=== PATIENT | female | born 1990 | race Caucasian/White ===

== ENCOUNTER 2022-10-17 10:29 | Emergency (ER) | payer OTHER, MEDICAID, SELFPAY ==
[2022-10-17 11:12] VITALS: BP 122/82; PULSE 80; RESP 18; TEMP 36.7; O2SAT 100
--- NOTE | 2022-10-17 11:35 | ED.URI ---
HPI - URI/Sore Throat General Chief Complaint: Upper Respiratory Infection Stated Complaint: sorethroat,cough Time Seen by Provider: 10/17/22 11:36 History of Present Illness HPI Narrative: 32-year-old female presented for complaint of sinus congestion, sore throat, fatigue and cough over the last few days. She endorses episode of nausea and vomiting and endorses bilateral ear pain. She denies fever, but states she never gets afebrile. She denies shortness of breath, wheezing or abdominal pain. Taking [id number] medication without significant relief. She endorses her son tested positive for influenza last week. Related Data Allergies Allergy/AdvReac Type Severity Reaction Status Date / Time ceftriaxone [From Rocephin] Allergy Hives Verified 10/17/22 11:30 Review of Systems Review of Systems: Per HPI Exam Narrative: GENERAL: Ill-appearing, no acute distress. EYES: conjunctivae clear ENT: Mucous membranes moist. TMs pearly alaniz with normal light reflex bilaterally; no tragal tenderness. Oropharynx erythematous without lesions. No drooling, no hoarseness, no trismus, uvula midline. No tripod positioning, hot potato voice, or soft palate swelling. NECK: Supple. No lymphadenopathy CHEST: Clear to auscultation, breath sounds equal. No respiratory distress, speaks in full sentences. HEART: Regular rate and rhythm. No murmur heard. SKIN: Warm, dry, no rash. NEURO: Alert and oriented x3. Course Course Emergency Course: Patient is aware of diagnosis, understands and agrees to treatment plan. Anticipatory guidance given. Patient agrees to follow-up as directed and is aware of reasons to seek care at the emergency department. Portions of this record may have been created with voice recognition software Level of Care: Express Care Visit Vital Signs Vital signs: Vital Signs Temperature 98.1 F 10/17/22 11:12 Pulse Rate 80 10/17/22 11:12 Respiratory Rate 18 10/17/22 11:12 Blood Pressure 122/82 10/17/22 11:12 Pulse Oximetry 100 10/17/22 11:12 Oxygen Delivery Room Air 10/17/22 11:12 Temperature 98.1 F 10/17/22 11:12 Pulse Rate 80 10/17/22 11:12 Respiratory Rate 18 10/17/22 11:12 Blood Pressure 122/82 10/17/22 11:12 Pulse Oximetry 100 10/17/22 11:12 Oxygen Delivery Room Air 10/17/22 11:12 MDM - URI/Sore Throat MDM Narrative Medical decision making narrative: Due to lack of resources, unable to test for influenza or rapid strep at this time. COVID result reviewed with patient. Will treat for strep based on PE. Patient verbalizes understanding. Advised supportive measures and signs and symptoms to go to the ER. Patient is appropriate for outpatient treatment and follow-up. Differential Diagnosis Differential diagnosis: Likely upper respiratory infection, viral infection and pharyngitis Lab Data Labs: Lab Results 10/17/22 Range/Units 11:30 POC SARS CoV-2 Ag Negative (Negative) Discharge Plan Discharge Clinical Impression: Pharyngitis Qualifiers: Pharyngitis/tonsillitis etiology: unspecified etiology Qualified Code(s): J02.9 - Acute pharyngitis, unspecified Patient Disposition: Home, Self-Care Condition: Stable Instructions: Antibiotic Form, Strep Throat (ED) Additional Instructions: Covid negative - Take the antibiotic as directed. Fever and sore throat typically resolve within one to three days. Most patients can return to work after 24 hours of antibiotic therapy, provided you are fever free and otherwise well. -Eat and drink things that are easy to swallow, like soft foods, cool liquids, tea with honey, or popsicles . -Salt water gargles and/or may use topical anesthetic ( Chloraseptic spray) or lozenges to relieve dryness or throat pain -Alternate Tylenol and ibuprofen as needed for pain and fever as directed. -Frequent hand washing or hand assistant scientist is one of the best ways to prevent spread of infection. Throw away
== END 2022-10-17 12:05 | disposition home or self-care (01) ==
PROVIDERS: Emergency Provider Nurse Practitioner Family
DX: J02.9 Acute pharyngitis, unspecified (principal); Z20.822 Contact with and (suspected) exposure to COVID-19
CPT/HCPCS: 87426; 99203; C9803; G0463

== ENCOUNTER 2025-02-11 14:16 | Emergency (ER) | payer OTHER, SELFPAY ==
--- NOTE | ~2025-02-11 | US_ITS ---
Limited ABDOMINAL ULTRASOUND (Doppler ultrasound interrogation techniques used as needed for this exa m.) Ordering provider: Satish Matias MD History: . RUQ ab pain . Comparison: None. FINDINGS: PANCREAS: Normal echotexture and size of the visualized portion. PORTAL VEIN: Hepatopedal flow demonstrated. LIVER: Normal size and echotexture. No focal hepatic lesions or perihepatic fluid collections are otf ntified. BILIARY DUCTS: No intra or extrahepatic biliary dilation. Common bile duct measures 3.1 mm in diamete r which is normal for patient's age. GALLBLADDER: Normal. No stones, sludge, gallbladder wall thickening or pericholecystic fluid. Wall th ickness is 2.6 mm. Negative sonographic Burrell's sign. IVC: Patent. FREE FLUID: None visualized within the upper abdomen. IMPRESSION: normal limited abdominal ultrasound. Reviewed, dictated and finalized at location A.
--- OUTSIDE RECORDS SUMMARY | 2025-02-11 14:19 | XMS_ITS | Data Portability ---
Author Organization [employer] , [facility] Address [address] [place] [address] Assessment No assessment recorded. Plan of Treatment Reminders Order Date Submit Date Provider Last Modified By Organization Details Last Modified Time Details Appointments None recorded. Lab unlisted lab - pcos evaluation (high index suspicion) ([facility]) 2022 023 [facility], [address] [place], [address], 3 10:40:25 testosteron e, free + total, serum 2022 023 [facility], [address] [place], [address], 3 16:47:36 lipid panel, serum 2022 023 [facility], [address] [place], [address], 3 16:47:34 hemoglobin A1c, QN, blood 2022 023 [facility], [address] [place], [address], 3 09:58:35 insulin, serum 2022 023 [facility], [address] [place], [address], 3 16:47:35 bacterial vaginosis + vaginitis panel, vaginal 2022 023 [email or web address] [facility], [address] [place], [address], 3 11:22:15 urinalysis, dipstick 2022 023 [email or web address] [facility], [facility] [place], [address], 3 11:17:43 culture, urine 2022 023 [email or web address] [facility], [address] [facility], [place], [address], 3 11:23:56 CBC w/ auto diff 2022 023 [email or web address] [facility], [address] [place], [address], 3 11:23:06 Referral None recorded. Procedures None recorded. Surgeries None recorded. Imaging US, transvagina l 2022 023 ASBINO [facility], [address] [place] [address], [address], 3 06:28:16 US, transvagina l 2021 022 fartun [facility], [address] [place] [address], [address], 3 19:10:14 MAMMO, diagnostic, digital, bilateral - Also ultrasound, if indicated 2021 022 [email or web address] [facility], [address] [facility], [place], [address], 3 12:43:14 US, obstetric 2021 022 [email or web address] 173 [facility], [address] [place], [address], 14:27:43 Medication Orders None recorded. Patient TargetsNo targets recorded. Patient Instructions Encounter Date Encounter Id Patient Instructions Last Modified By Organization Details Last Modified Time 01/02/2023 [id number] Charge Nurse Med/Surg St E. Reports relationship problems. Reports stress and weight loss 10# in < one month. Also heavy LMP and will proceed with CBC today. Denies any new products or antibiotic use. Reports she used Monistat and everything seems better except for discharge. Denies any known exposures. Desires sureswab culture today. UA negative for nitrite and culture sent. Hygiene and products discussed. Pelvic rest and STI prevention with condoms. Call for any problems. [email or web address] Not available 01/02/2023 11:28:57 Reason for Referral None Reported. Results Created Date Observation Date Name Description Value Unit Range Abnormal Flag Note LastModifiedBy Organization Detail LastModifiedTime 01/03/2001/03/2023 CBC (INCL UDES DIFF/ PLT) WBC 5.9 thous and/u L 4.0 - 9.8 normal Not [place], [address], 01/03/2023 11:31:22 01/03/20 23 01/03/2023 CBC (INCL UDES DIFF/ PLT) RBC 4.8 kesha on/uL 3.9 - 4.9 normal Not Available [place], [address], 01/03/2023 11:31:22 01/03/20 23 01/03/2023 CBC (INCL UDES DIFF/ PLT) hemoglobin 13.5 g/dL 11.8 - 14.8 normal Not Available [place], [address], 01/03/2023 11:31:22 01/03/20 23 01/03/2023 CBC (INCL UDES DIFF/ PLT) hematocrit 42.2 % 35.5 - 44.0 normal Not Available [place], [address], 01/03/2023 11:31:22 01/03/20 23 01/03/2023 CBC (INCL UDES DIFF/ PLT) MCV 87.7 fL 82.0 - 99.0 normal Not Available [address], [address], 01/03/2023 11:31:22 01/03/20 23 01/03/2023 CBC (INCL UDES DIFF/ PLT) MCH 28.1 pg 27.2 - 32.6 normal Not Available [address], [address], 01/03/2023 11:31:22 01/03/20 23 01/03/2023 CBC (INCL UDES DIFF/ PLT) MCHC 32.0 g/dL 31.5 - 35.5 normal Not Available [address], [address], 01/03/2023 11:31:22 01/03/20 23 01/03/2023 CBC (INCL UDES DIFF/ PLT) RDW-CV 12.4 % 11.5 - 14.5 normal Not Available [address], [address], 01/03/2023 11:31:22 01/03/20 23 01/03/2023 CBC (INCL UDES DIFF/ PLT) platelet 283 thous and/u L 140 - 350 normal Not Available [address], [address], 01/03/2023 11:31:22 01/03/20 23 01/03/2023 CBC (INCL UDES DIFF/ PLT) MPV 10.5 fL 9.3 - 12.4 normal Not Available [address], [address], 01/03/2023 11:31:22 01/03/20 23 01/03/2023 CBC (INCL UDES DIFF/ PLT) absolute neutrophil 2.99 thous and/u L 1.90 - 7.00 normal Not Available [address], [address], 01/03/2023 11:31:22 01/03/20 23 01/03/2023 CBC (INCL UDES DIFF/ PLT) absolute lymphocyte 2.40 thous and/u L 0.70 - 4.50 normal Not Available [address], [address], 01/03/2023 11:31:22 01/03/20 23 01/03/2023 CBC (INCL UDES DIFF/ PLT) absolute monocyte 0.39 thous and/u L 0.10 - 1.30 normal Not Available [address], [address], 01/03/2023 11:31:22 01/03/20 23 01/03/2023 CBC (INCL UDES DIFF/ PLT) absolute eosinophil 0.08 thous and/u L <0.70 normal Not Available [address], [address], 01/03/2023 11:31:22 01/03/20 23 01/03/2023 CBC (INCL UDES DIFF/ PLT) absolute basophil 0.02 thous and/u L <0.20 normal Not Available [address], [address], 01/03/2023 11:31:22 01/03/20 23 01/03/2023 CBC (INCL UDES DIFF/ PLT) absolute immature granulocyte 0.00 thous and/u L <0.03 normal Not Available [address], [address], 01/03/2023 11:31:22 01/03/20 23 01/03/2023 CULTU RE, URINE , ROUTI NE culture, urine, routine SEE NOTE abnormal CULTU RE, URINE , ROUTI NE Micro Numbe r: [id number] Test Statu s: Final Speci men Sourc e: Urine Speci men Quali ty: Adequ ate Resul t: Great er than 100,0 00 CFU/m L of Group B Strep tococ cus isola alexander Beta- hemol ytic strep tococ ci are predi ctabl y susce ptibl e to Penic illin and other beta- lacta ms. Susce ptibi lity testi ng not routi robert perfo rmed. Pleas e conta ct the labor atory withi n 3 days if susce ptibi lity testi ng is marla ed. Comme nt: Eryth romyc in and clind amyci n are not recom krys d for treat ment of urina ry tract infec tions , but clind amyci n may be usefu l for treat ment of recto vagin al colon izati on or infec tion. Any amoun t of group B Strep tococ cus in urine speci mens obtai moshe from pregn ant femal es is a marke r of genit al tract colon izati on. If this patie nt is pregn ant, pleas e refer to ACOG guide lines for appro priat e scree tru and manag ement of pregn ant women . COMME NT: Addit ional non-p redom inati ng organ ism(s ) isola alexander. These organ isms, commo nly found on exter nal and inter nal genit rodrigo, are consi dered colon izers . No furth er testi ng perfo rmed. Not Available [facility] [facility] [address] [place], [address], 01/03/2023 16:26:25 01/03/20 23 01/05/2023 VAGIN ITIS PLUS STD PANEL bacterial vaginosis BV POS negati ve abnormal Not Available [facility] [address] [place], [address], 01/06/2023 10:08:43 01/03/20 23 01/05/2023 VAGIN ITIS PLUS STD PANEL kan species C. spp POS negati ve abnormal Not Available [facility] [address] [place], [address], 01/06/2023 10:08:43 03/10/01/05/2023 VAGIN ITIS PLUS STD PANEL kan glabrata C. gla neg negati ve normal Not Available [address], [address], 01/06/2023 10:08:43 01/03/20 23 01/05/2023 VAGIN ITIS PLUS STD PANEL trichomonas vaginalis CV/TV TRICH neg negati ve normal Not Available [address], [address], 01/06/2023 10:08:43 01/03/20 23 01/05/2023 VAGIN ITIS PLUS STD PANEL chlamydia trachomatis CT neg negati ve normal This repor t is inten ded for us in clini lory monit oring and manag ement of patie nts. It is not inten ded for use in medic al- gal appli catio n. Not Available [address], [address], 01/06/2023 10:08:43 01/03/20 23 01/05/2023 VAGIN ITIS PLUS STD PANEL neisseria gonorrhoeae GC neg negati ve normal This repor t is inten ded for us in clini lory monit oring and manag ement of patie nts. It is not inten ded for use in medic al-le gal appli catio n. Not Available [address], [address], 01/06/2023 10:08:43 01/03/20 23 01/02/2023 urina lysis , dipst ick Leukocytes Small Not Available [facility] [place], [address], 01/02/2023 11:07:53 01/03/20 23 01/02/2023 urina lysis , dipst ick Nitrite negati ve Not Available [facility]_[address], [address], 01/02/2023 11:07:53 01/03/20 23 01/02/2023 urina lysis , dipst ick Urobilinogen .2 Not Available [facility] [address], [address], 01/02/2023 11:07:53 01/03/20 23 01/02/2023 urina lysis , dipst ick Protein Trace Not Available [address], [address], 01/02/2023 11:07:53 01/03/20 23 01/02/2023 urina lysis , dipst ick pH 7.0 Not Available [address], [address], 01/02/2023 11:07:53 01/03/20 23 01/02/2023 urina lysis , dipst ick Blood Negati ve Not Available [address], [address], 01/02/2023 11:07:53 01/03/20 23 01/02/2023 urina lysis , dipst ick Specific [place] 1.005 Not Available [facility] [address], [address], 01/02/2023 11:07:53 01/03/20 23 01/02/2023 urina lysis , dipst ick Ketone Small Not Available [address], [address], 01/02/2023 11:07:53 01/03/20 23 01/02/2023 urina lysis , dipst ick Bilirubin Negati ve Not Available [address], [address], 01/02/2023 11:07:53 01/03/20 23 01/02/2023 urina lysis , dipst ick Glucose Negati ve Not Available [address], [address], 01/02/2023 11:07:53 01/03/20 23 01/02/2023 urina lysis , dipst ick Appearance Clear Not Available [facility] [address], [address], 01/02/2023 11:07:53 01/03/20 23 01/02/2023 urina lysis , dipst ick Color Yellow Not Available [address], [address], 01/02/2023 11:07:53 07/24/20 23 07/25/2023 HEMOG LOBIN A1C hemoglobin A1C 5.4 % <5.7 normal The refer ence range for HbA1c is indic ated in the table below . Sugge sted Diagn osis =6.5% Consi stent with diabe neva 5.7 6.4% Consi stent with incre ased risk for diabe neva (pred iabet ic) <5.7% Consi stent with the absen ce of diabe neva Not Available [facility] [address] [place], [address], 07/25/2023 09:58:35 07/24/2007/25/2023 PCOS EVALU ATION (HIGH INDEX SUSPI CION) ([facility] ) DHEA-S 228.3 mcg/d L 25.9 - 460.2 normal Not Available [facility] [address] [place], [address], 07/25/2023 10:40:25 07/24/20 23 07/25/2023 PCOS EVALU ATION (HIGH INDEX SUSPI CION) ([facility] ) FSH 4.6 mIU/m L Refer ence Range s are for femal es aged 18 years - Adult Brittany l Menst ruati ng Femal e: Folli cular phase : 2.5-1 0.2 mIU/m L Mid-C ycle Peak: 3.4-3 3.4 mIU/m L Lutea l phase : 1.5-9 .1 mIU/m L Pregn ant: <0.3 mIU/m L Post- menop ausal : 23.0- 116.6 mIU/m L Not Available [place], [address], 07/25/2023 10:40:25 07/24/2007/25/2023 PCOS EVALU ATION (HIGH INDEX SUSPI CION) ([facility] ) LH 15.63 U/L Refer ence Range s are for femal es aged 18 years - Adult Brittany l Menst ruati ng Femal e: Folli cular phase : 1.9-1 2.5 mIU/m L Mid-C ycle Peak: 8.7-7 6.3 mIU/m L Lutea l phase : 0.5-1 6.9 mIU/m L Pregn ant: <0.1- 1.5 mIU/m L Post- menop ausal : 15.9- 54.0 mIU/m L Contr acept debby: 0.7-5 .6 mIU/m L Not Available [place], [address], 07/25/2023 10:40:25 07/24/2007/25/2023 PCOS EVALU ATION (HIGH INDEX SUSPI CION) ([facility] ) TSH 1.09 mIU/L 0.55 - 4.78 normal Refer ence Range Femal e aged 18-Ad ult: 0.55- 4.78 Pregn natty Refer ence Range s First Trime ster 0.26- 2.66 Secon d Trime ster 0.55- 2.73 Third Trime ster 0.43- 2.91 Not Available [place], [address], 07/25/2023 10:40:25 07/24/20 23 07/25/2023 PCOS EVALU ATION (HIGH INDEX SUSPI CION) ([facility] ) T4, free 1.13 NG/dL 0.89 - 1.76 normal Not Available [address], [address], 07/25/2023 10:40:25 07/24/20 23 07/29/2023 LIPID PANEL , STAND EDD cholesterol, total 256 mg/dL <200 high Not Available [address], [address], 07/29/2023 16:47:34 07/24/20 23 07/29/2023 LIPID PANEL , STAND EDD HDL cholesterol 59 mg/dL > or = 50 normal Not Available [address], [address], 07/29/2023 16:47:34 07/24/20 23 07/29/2023 LIPID PANEL , STAND EDD triglyceride s 137 mg/dL <150 normal Not Available [employer] [address], [address], 07/29/2023 16:47:34 07/24/20 23 07/29/2023 LIPID PANEL , STAND EDD LDL-choleste rol 170 mg/dL _(lory c) high Refer ence range : <100 Marla able range <100 mg/dL for prima ry preve ntion ; <70 mg/dL for patie nts with CHD or diabe tic patie nts with > or = 2 CHD risk facto rs. LDL-C is now calcu lated using the Guadalupe n-Hop kins calcu neto n, which is a valid ated novel metho d anai medina burk r accur acy than the Fried mirian equat ion in the estim ation of LDL-C . Guadalupe bean SS et al. DAMIAN. 2013; 310(2 9): 2061- 2068 (http ://ed ucati on.Radius App. com/f aq/FA Q164) Not Available [employer] [place] [address] [address], [place], [address], 07/29/2023 16:47:34 07/24/20 23 07/29/2023 LIPID PANEL , STAND EDD chol/HDLC ratio 4.3 (calc ) <5.0 normal Not Available [facility] [place] [address] [address], [place], [address], 07/29/2023 16:47:34 07/24/20 23 07/29/2023 LIPID PANEL , STAND EDD non HDL cholesterol 197 mg/dL _(lory c) <130 high For patie nts with diabe neva plus 1 major ASCVD risk facto r, treat ing to a non-H DL-C goal of <100 mg/dL (LDL- C of <70 mg/dL ) is consi dered a thera peuti c optio n. Not Available [facility] [place] [address] [address], [place], [address], 07/29/2023 16:47:34 07/24/2007/29/2023 INSUL IN insulin 10.9 uIU/m L normal Refer ence Range < or = 18.4 Risk: Optim al < or = 18.4 Moder ate NA High >18.4 Adult cardi ovasc ular event risk categ ory cut point s (opti mal, moder ate, high) are based on Insul in Refer ence Inter carlito studi es [facility]med at [facility] in 2021. Not Available [employer] [place] [address] [address], [place], [address], 07/29/2023 16:47:35 07/24/2007/29/2023 TESTO STERO NE, FREE (DIAL YSIS) AND TOTAL ,MS testosterone , total, MS 44 NG/dL 2-45 For addit ional infor johnathon kennedy e refer to https ://ed ati on.GTX Messaging. com/f aq/FA Q165 (This link is being provi ded for infor matio nal/e ducat ional purpo ses only. ) (Note ) This test was devel oped and its jerri tical perfo rmanc e narayan cteri stics have been deter mined by Olive Loomon. It has not been clear ed or appro bhakti by the FDA. This assay has been valid ated pursu ant to the CLIA regul ation s and is used for clini lory purpo ses. Not Available [facility] [address] [place], [address], 07/29/2023 16:47:36 07/24/20 23 07/29/2023 TESTO STERO NE, FREE (DIAL YSIS) AND TOTAL ,MS testosterone , free 4.3 pg/mL 0.1-6. 4 (Note ) This test was devel oped and its jerri tical perfo rmanc e narayan cteri stics have been deter mined by Olive Loomon. It has not been clear ed or appro bhakti by the FDA. This assay has been valid ated pursu ant to the CLIA regul ation s and is used for clini lory purpo ses. MDF med fusio n [address] [facility] [address] [facility] [address] [phone] Magan renner MD Not Available [facility] [address] [place], [address], 07/29/2023 16:47:36 10/09/20 22 US, obste tric No observ ation record ed. [email or web address] [facility] [address] [facility], [place], [address], 10/09/2022 11:45:08 10/11/20 22 10/09/2022 US, obste tric No observ ation record ed. [email or web address] [address] [facility], [place], [address], 10/14/2022 19:57:47 02/11/20 23 02/10/2023 MAMMO , diagn ostic , digit al, bilat eral No observ ation record ed. [email or web address] [place], [place] [address], [place], [address], 02/12/2023 12:24:49 02/11/20 23 02/10/2023 US, breas t, bilat eral, limit ed No observ ation record ed. [facility], [place], [address], 02/18/2023 08:44:41 02/11/20 23 02/10/2023 US, breas t, bilat eral, limit ed No observ ation record ed. [facility], [place], [address], 02/18/2023 08:44:58 07/21/20 23 07/20/2023 US, trans vagin al No observ ation record ed. [email or web address] Shanna [address], [place], [address], 07/21/2023 11:22:56 Result Notes None recorded. Problems Name Problem SNOMED Code Status Onset Date Resolution Date Notes Provider Name and Address Organization Details Recorded Time Insertio n of intraute rine contrace ptive device done 29256110695 9109 Completed 201303/16/2014 Encounte r for insertio n of intraute rine contrace ptive device; Location : None Severity : Moderate Progress : Stable Added By: Susan Arboleda Add to Current Problems : NO ProblemS tatus: Resolve Not Available [facility] 02:43:40 Family history of congenit al disease [id number] Completed 201809/23/2021 Family history of other congenit al malforma tions, deformat ions and chromoso mal abnormal ities; Severity : Moderate Progress : Stable Added By: Wendy Marie Add to Current Problems : YES ProblemS tatus: Current Audelia Ramirez null, [place] - [employer] 15:53:46 Gestatio n period, 8 weeks 17850843 Completed 201809/23/2021 8 weeks gestatio n of pregnanc y; Severity : Moderate Progress : Stable Added By: Laila Segura Add to Current Problems : YES ProblemS tatus: Current Audelia Ramirez null, [place] - [employer] 15:53:51 Uses intraute rine contrace ption [id number] Completed 201411/29/2014 Patient with intraute rine contrace ptive device (IUD); Location : None Severity : Moderate Progress : Stable Added By: Karina Orellana Add to Current Problems : YES ProblemS tatus: Resolve Not Available [facility] 02:43:40 Sampling of vagina for Papanico laou smear Completed 202009/23/2021 Encounte r for gynecolo gical examinat ion (general ) (routine ) without abnormal findings ; Severity : Moderate Progress : Stable Added By: Belinda Fernandez Add to Current Problems : YES ProblemS tatus: Current Audelia Ramirez null, [place] - [employer] 15:53:54 Contrace ptive usage NOS Completed 201408/07/2015 Initiati on of other contrace ptive measures ; Location : None Severity : Moderate Progress : Stable Added By: Wendy Clifford Add to Current Problems : YES ProblemS tatus: Resolve Not Available [facility] 02:43:49 Normal pregnanc y in multigra hans [id number] 4106 Completed 201810/08/2021 Encounte r for supervis ion of other normal pregnanc y, first mo r; Severity : Moderate Progress : Stable Added By: Clair Guevara Add to Current Problems : YES ProblemS tatus: Current Belinda Bowie null, [place] - [employer] 10:50:03 Threaten ed miscarri age 61432906 Completed 201809/23/2021 Threaten ed ; Location : None Severity : Moderate Progress : Stable Added By: Joan Diehl Add to Current Problems : NO ProblemS tatus: Resolve; Start Date : 11/08/19 14 Threa tened ; Severity : Moderate Progress : Stable Added By: Annette Cole Add to Current Problems : YES ProblemS tatus: Current Audelia Ramirez null, [facility] 1 15:53:57 Pregnanc y care of habitual aborter Completed 201312/16/2014 Habitual aborter, not currentl y ; Location : None Progress : Stable Added By: Marek Worthington V Add to Current Problems : NO ProblemS tatus: Resolve Not Available [facility] 2 19:21:15 Pelvic and perineal pain 891493194 Completed 201411/07/2015 Pelvic and perineal pain; Progress : Stable Added By: Siri Rueda Add to Current Problems : NO ProblemS tatus: Resolve Not Available [facility] 2 19:21:16 Breast lump 26058091 Completed 201509/23/2021 Breast mass; Location : None Severity : Moderate Progress : Stable Added By: Anastasiia Barrera Add to Current Problems : NO ProblemS tatus: Resolve; Start Date : 02/10/20 14 Unspe cified lump in breast; Severity : Moderate Progress : Stable Added By: Worthington, Marek V Add to Current Problems : YES ProblemS tatus: Current Breast mass; Location : None Severity : Moderate Progress : Stable Added By: Worthington, Marek V Add to Current Problems : NO ProblemS tatus: Current Audelia Ramirez null, [facility] 1 15:53:43 Missed miscarri age 30434282 Completed 201301/13/2014 Missed ; Progress : Stable Added By: Marissa Garza Add to Current Problems : NO ProblemS tatus: Resolve Not Available [facility] 2 19:21:16 Female genital organ symptoms 052985892 Completed 201411/07/2015 Pelvic pain; Location : None Progress : Stable Added By: Michael Griffiths Add to Current Problems : NO ProblemS tatus: Resolve; Start Date : 01/25/20 14 Pelvi c pain; Location : None Progress : Stable Added By: Siri Rueda Add to Current Problems : YES ProblemS tatus: Resolve Not Available [facility] 2 19:21:15 Dyspareu demetria 16333403 Completed 201311/29/2014 Dyspareu demetria; Location : None Progress : Stable Added By: Lauren Ag Add to Current Problems : NO ProblemS tatus: Resolve Not Available [facility] 2 19:21:15 IUCD status 266698524 Completed 201411/29/2014 Patient with intraute rine contrace ptive device (IUD); Location : None Progress : Stable Added By: Karina Orellana Add to Current Problems : YES ProblemS tatus: Resolve Not Available [facility] 2 19:21:14 Antenata l screenin g Active 2018 Encounte r for other specifie d antenata l screenin g; Progress : Stable Added By: Clair Guevara Add to Current Problems : YES ProblemS tatus: Current Salud Delacruz null, [place] - [facility] 2 12:43:12 Pre-surg alessia evaluati on Completed 201303/16/2014 IUD Prep; Location : None Progress : Stable Added By: Susan Arboleda Add to Current Problems : NO ProblemS tatus: Resolve Not Available [facility] 2 19:21:16 Screenin g for malignan t neoplasm of cervix Active 2020 Encounte r for screenin g for malignan t neoplasm of cervix; Progress : Stable Added By: Belinda Fernandez Add to Current Problems : YES ProblemS tatus: Current Salud Delacruz null[place] [facility] 2 12:43:12 Palpitat ions 15328109 Active 2021 Salud Delacruz null[place] [facility] 2 12:43:12 Anxiety 11033419 Active 2021 Salud Delacruz null[place] [facility] 2 12:43:12 Vitamin D deficien cy 13630921 Active 2021 Salud Delacruz null[place] [facility] 2 12:43:12 Gestatio n period, 10 weeks 40937550 Completed 201809/23/2021 10 weeks gestatio n of pregnanc y; Severity : Moderate Progress : Stable Added By: Clair Guevara Add to Current Problems : YES ProblemS tatus: Current Audelia juárez, [facility] IV 1 15:53:49 Notes:Initiation of other co ntraceptive measures (V25.02) ; OnsetDate: 11/29/2014; ResolvedDate: 08/07/2015; Progress: Stable Added By: Wendy Clifford Add to Current Problems: NO ProblemStatus: Resolve Encounter for insertion of intrauterine contraceptive device (V25.11) ; OnsetDate: 01/13/2014; ResolvedDate: 03/16/2014; Progress: Stable Added By: Susan Barnes Add to Current Problems: NO ProblemStatus: Resolve Problem Notes None recorded. Procedures Surgical History Date Name Laterality Status Provider Name and Address Organization Details Recorded Time 2 Date of Last Pap Smear completed Audelia Ramirez [facility] 01/02/2023 10:42:48 1 Most Recent Mammogram completed Sylvia Vinson [facility] 10/09/2022 11:52:28 Remove tonsils and adenoids completed Leona Daniel [facility] 09/18/2021 12:37:45 Imaging Results Imaging Date Name Status LastModified by Organization Details LastModified Time 10/09/2022 US, obstetric completed [id number] [facility] [address] [place], [address], 10/09/2022 11:45:08 10/09/2022 US, obstetric completed carolee Shanna [address], [place], [address], 10/14/2022 19:57:47 02/10/2023 MAMMO, diagnostic, digital, bilateral completed [email or web address] [place] [address], [place], [address], 02/12/2023 12:24:49 02/10/2023 US, breast, bilateral, limited completed [facility], [place], [address], 02/18/2023 08:44:41 02/10/2023 US, breast, bilateral, limited completed [facility], [place], [address], 02/18/2023 08:44:58 07/20/2023 US, transvaginal completed [facility] [address], [facility], [place], [address], 07/21/2023 11:22:56 Procedure Notes None recorded. Medical Equipment None Reported. Allergies Allergen ID Allergen Name Allergen Category Reaction Reaction Severity Criticality Documentation Date Start Date Code Code System Note Provider Name and Address Organization Details Recorded Time 456371 Rocephin medicatio n Not available Not available Not available 08/16/20212020 9449 RxNorm Sever ity: Moder ate; Not Available Not Available Not Available 181304 ciproflox acin medicatio n rash moderate Not available 09/08/20222018 2551 RxNorm Not Available Not Available Not Available 202285 ceftriaxo ne medicatio n hives rash moderate moderate Not available 09/08/20222018 2193 RxNorm Not Available Not Available Not Available 657632 varicella virus vaccine live medicatio n Not available Not available Not available 01/02/2023 15563 UNK Not Available Not Available Not Available Medications Name Sig Start Date Stop Date Status Note LastModified by Organization Details LastModified Time binaxnow covid-19 ag card home test kit 01/02 completed Not Available Not Available Not Available amoxicill in 500 mg capsule TAKE 1 CAPSULE BY MOUTH THREE TIMES DAILY FOR 7 DAYS 05/12 completed Not Available Not Available Not Available fluconazo le 150 mg tablet TAKE 1 TABLET BY MOUTH TODAY AND REPEAT IN 3 DAYS 05/12 completed Not Available Not Available Not Available ampicilli n 500 mg capsule TAKE 1 CAPSULE BY MOUTH EVERY 6 HOURS FOR 7 DAYS 05/12 completed Not Available Not Available Not Available hydrocodo ne 5 mg-acetam inophen 325 mg tablet TAKE 1 TO 2 TABLETS BY MOUTH EVERY 6 HOURS NEEDED FOR PAIN OR ACUTE PAIN OR MODERATE PAIN active Not Available Not Available No t Available phenazopy ridine 200 mg tablet 10/08 completed Not Available Not Available Not Available metronida zole 0.75 % (37.5 mg/5 gram) vaginal gel INSERT 1 APPLICAT ORFUL VAGINALL Y ONCE DAILY FOR 5 DAYS 05/12 completed Not Available Not Available Not Available ondansetr on HCl 4 mg tablet TAKE 1 TABLET BY MOUTH EVERY 8 HOURS NEEDED 01/02 completed Not Available Not Available Not Available metronida zole 500 mg tablet TAKE 1 TABLET BY MOUTH EVERY 12 HOURS FOR 7 DAYS 05/12 completed Not Available Not Available Not Available amoxicill in 500 mg tablet Take 1 tablet 3 times a day by oral route for 7 days. 05/12 completed Not Available Not Available Not Available Vitamin tablet Take 1 tablet(s ) by mouth daily 10/08 completed Multivit moss Tablet Allow Substitu tion: True Refill Denied: No Refill Note: No longer taking Refill DateOccu rred: 11/08/19 14 Not Available Not Available Not Available oxycodone -acetamin ophen 5 mg-325 mg tablet 03/20 completed Not Available Not Available Not Available famotidin e 20 mg tablet 10/08 completed Not Available Not Available Not Available dicyclomi ne 20 mg tablet 10/08 completed Not Available Not Available Not Available neomycin- polymyxin -dexameth 3.5 mg/mL-10, 000 unit/mL-0 .1% eye drops INSTILL ONE DROP INTO THE AFFECTED EYE FOUR TIMES DAILY X 7 DAYS. SHAKE LIQUID WELL BEFORE USE. 10/09 completed Not Available Not Available Not Available ondansetr on 4 mg disintegr ating tablet 10/08 completed Not Available Not Available Not Available dicyclomi ne 10 mg capsule Take 10 mg 4 times a day by oral route. 10/09 completed Not Available Not Available Not Available amoxicill in 875 mg-potass ium clavulana te 125 mg tablet 10/08 completed Not Available Not Available Not Available NuvaRing 0.12 mg-0.015 mg/24 hr vaginal Insert 1 vaginal ring in vagina for 21 days then remove the ring for 1 week. 11/29 completed NuvaRing 0.015mg/ 0.12mg Vaginal Ring RxNorm: [id number] Allow Substitu tion: True Refill Denied: No Not Available Not Available Not Available nitrofura ntoin monohydra te/macroc rystals 100 mg capsule 10/08 completed Not Available Not Available Not Available Fish Oil 12/18 completed Fish Oil RxNorm: 0 Allow Substitu tion: True Refill Denied: No Refill DateOccu rred: 12/17/19 19 Edited by: Belinda Garcia ) on 12/18/19 Stopped by: Belinda Garcia ) on 12/18/19 21 Not Available Not Available Not Available folic acid Take 1 tablet(s ) by mouth daily 03/16 completed Folic Acid 0.4mg Tablets RxNorm: [id number] Allow Substitu tion: True Refill Denied: No Refill Note: No longer taking Refill DateOccu rred: 11/08/19 14 Not Available Not Available Not Available Vitamin D 10/09 completed Not Available Not Available Not Available multivita min 05/12 completed Not Available Not Available Not Available Mirena Inserted 01/13/1411/14 completed Mirena 52mg Intraute rine System RxNorm: [id number] Allow Substitu tion: True Refill Denied: No Refill DateOccu rred: 03/16/20 14 Not Available Not Available Not Available cholecalc iferol (vitamin D3) 25 mcg (1,000 unit) tablet Take 1 {tbl} by oral route. 01/02 completed Not Available Not Available Not Available butalbita l-acetami nophen-ca ffeine 50 mg-300 mg-40 mg capsule TAKE 1 CAPSULE BY MOUTH EVERY 4 HOURS NEEDED FOR HEADACHE 01/02 completed Not Available Not Available Not Available Lo Loestrin Fe 1 mg-10 mcg (24)/10 mcg (2) tablet 1 tab PO daily 10/09 completed Lo Loestrin Fe Biphasic Tablet Allow Substitu tion: False Refill Denied: No For Problem: Initiati on of other contrace ptive measures Not Available Not Available Not Available Cedric Fe 11/14 (28) 1 mg-20 mcg (21)/75 mg (7) tablet 10/08 completed Not Available Not Available Not Available Vitals Date Recorded Body height Provider Name an d Address Organization Details Last Updated DateTime 10/09/2022 154.94 cm Dona Henry [facility] [employer] [facility] 10/09/2022 11:37:25 Date Recorded Body mass index (BMI) Body weight Body temperature Systolic blood pressure Diastolic blood pressure Provider Name and Address Organization Details Last Updated DateTime 2 25.5 kg/m2 10325.9 7 g 97.8 [degF] 114 mm[Hg] 80 mm[Hg] Sylvia Vinson [facility] [employer] IV 2 11:49:28 Date Recorded Body height Body mass index (BMI) Body weight Body temperature Systolic blood pressure Diastolic blood pressure Provider Name and Address Organization Details Last Updated DateTime 3 154.94 cm 24.9 kg/m2 70368.1 9 g 98.2 [degF] 112 mm[Hg] 64 mm[Hg] Audelia Ramirez [facility] [employer] [facility] IV 3 10:41:53 Date Recorded Body height Body mass index (BMI) Body weight Systolic blood pressure Diastolic blood pressure Provider Name and Address Organization Details Last Updated DateTime 05/12/2023 154.94 cm 25.7 kg/m2 67475.5 6 g 100 mm[Hg] 70 mm[Hg] Etelvina Rodgers [facility] [employer] [facility] IV 3 12:03:01 Date Recorded Body height Body mass index (BMI) Body weight Body temperature Systolic blood pressure Diastolic blood pressure Provider Name and Address Organization Details Last Updated DateTime 3 154.94 cm 26.3 kg/m2 33008.7 8 g 98.7 [degF] 120 mm[Hg] 72 mm[Hg] Vivian San [facility] 3 11:55:20 Date Recorded Body height Body mass index (BMI) Body weight Body temperature Systolic blood pressure Diastolic blood pressure Provider Name and Address Organization Details Last Updated DateTime 3 154.94 cm 26.8 kg/m2 92989.4 g 97.8 [degF] 122 mm[Hg] 74 mm[Hg] Vivian San [facility] 3 15:02:12 Social History Question Answer Notes LastModified by Organizat ion Details LastModified Time Tobacco Smoking Status Never Smoker Leona Daniel franck, [facility] 09/18/2021 12:37:05 What Is Your Level Of Alcohol Consumption? Occasional Information not available 09/18/2021 How Many Times Per Week Do You Consume Alcohol? 1-2 Times Per Week Information not available 09/18/2021 Are You Blind Or Do You Have Difficulty Seeing? No Information not available 09/18/2021 Are You Currently Employed? Yes Information not available 09/18/2021 Are You Deaf Or Do You Have Serious Difficulty Hearing? No Information not available 09/18/2021 What Type Of Diet Are You Following? REGULAR Information not available 10/09/2022 What Is Your Occupation? [employer] Information not available 09/18/2021 How Many Children Do You Have? 2 Information not available 09/18/2021 What Is Your Relationship Status? Information not available 09/18/2021 Are You Sexually Active? Yes Information not available 09/18/2021 Do You Use Any Illicit Or Recreational Drugs? No Information not available 09/18/2021 Do You Or Have You Ever Used Any Other Forms Of Tobacco Or Nicotine? No Information not available 09/18/2021 Sex: Unknown Functional Status Question Answer Note LastModified by Organization D etails LastModified Time What is your exercise level? None Information not available 10/09/2022 Mental Status None recorded. Family History Relationship Description Onset Age of this Age Resolved Age Notes LastModified by Organization Details LastModified Time Maternal Grandmother Type 2 diabetes mellitus Not available 2020 12:32:09 Maternal Aunt Malignant tumor of breast Not available 2020 12:32:29 Medical History Condition Response Other Cancer N High Blood Pressure N Colon Cancer N Cytomegalovirus N Hyperthyroidism N MRSA N Blood Transfusion N Herpes (HSV) N Breast Cancer N Lung Cancer N Depression N Hypothyroidism N Incontinence N Panic Attacks N Neurological Disorder N Deep Vein Thrombosis N Anxiety Disorder N Autoimmune disease N Arthritis N Shingles N Tuberculosis/Positive PPD N Polycystic Ovarian Syndrome N Cervical Cancer N Chlamydia N Hematuria N Stroke N Varicosities N Seasonal allergies N Crohn's Disease N Alzheimer's/Dementia N COPD/Emphysema N Endometriosis N HPV/Genital Warts N IBS (Irritable Bowel Syndrome) N History of Abnormal Pap N High Cholesterol N Liver Disease N Kidney Infection N Fibromyalgia N Ulcer N Kidney Disease N HIV N Gallbladder disease N Von Willebrand disease N Sickle Cell Disease/Trait N ADD/ADHD N Eating Disorder N Diabetes Mellitus (non-insulin dependent ) N Anemia N Ovarian Problems Y Multiple Sclerosis N Gonorrhea N Frequent Urinary Tract infections N Osteopenia N Headaches/migraines N GERD (reflux) N Ovarian Cancer N Diabetes (insulin dependent) N Seizures/Epilepsy N Fibroids N Asthma N Heart Attack N Endometrial Cancer N Lupus N Rubella N Blood Clotting Disorder N Bipolar Disorder N Diabetes Mellitus (during ) N Ulcerative Colitis N Hepatitis N Heart Disease N Pulmonary Embolism N RPR N Chicken Pox N Osteoporosis N Gynecological History Statement/Question Response Flow Light Frequency of Cycle (Q days) 28 Date of LMP 07/03/2023 Date of Last Pap Smear 03/20/2022 Duration of Flow (days) 5 Most Recent Mammogram 06/15/2021 Current Control Method Condoms Age at Menarche 13 Obstetrics History GPAL:G 4 P 2 0 2 2 Type Value Full Term 2 Spontaneous 2 Living 2 Total 4 Immunizations Vaccine Type Date Status Note Provider Boy e and Address Organization Details Recorded Time Influenza, split virus, quadrivalent, preservative 8 completed Salud Delacruz null, [facility] 09/08/2022 12:43:30 COVID-19, mRNA, LNP-S, PF, 30 mcg/0.3 mL dose 1 completed Salud Delacruz null, [facility] IV 09/08/2022 12:43:30 influenza, unspecified formulation 7 completed Salud Delacruz null, [facility] 09/08/2022 12:43:30 varicella 5 completed Salud Delacruz null, [facility] 09/08/2022 12:43:30 Tdap 5 completed Salud Delacruz null, [facility] 09/08/2022 12:43:30 influenza, unspecified formulation 8 completed Salud Delacruz null, [facility] IV 09/08/2022 12:43:30 Tdap 9 completed Salud Delacruz null, [facility] IV 09/08/2022 12:43:30 Tdap 7 completed Salud Delacruz null, [facility] IV 09/08/2022 12:43:30 DTaP 5 completed Salud Delacruz null, [facility] IV 09/08/2022 12:43:30 influenza, unspecified formulation 9 completed Salud Delacruz null, [facility] IV 09/08/2022 12:43:30 Past Encounters Encounter ID Performer Location Encounter Start Date Encounter Closed Date Diagnosis/Indication Diagnosis SNOMED-CT Code Diagnosis ICD10 Code Diagnosis Note [id number] Sandy Guzman CNM [facility] [address] [place] [address] 10/08/2021 10:30:50 10/08/2021 12:40:20 Contraception care 131237408 Z30.09 will try progestero ne only OC, as patient gets too hormonal with ALEX's and pelvic pain with IUD [id number] Sandy Guzman CNM [facility] [address] [place] [address] 03/20/2022 16:49:50 03/20/2022 17:29:20 Gynecologic examination 70744587 Z01.419 Screening for malignant neoplasm of cervix 718837626 Z12.4 Pain in pelvis 40399324 R10.2 PA for nurse gynecology US. [id number] GERMAINE DOWELL-[facility] [address] [address] 09/08/2022 12:38:22 09/08/2022 15:20:36 Acute pelvic pain 646471998 R10.2 [id number] Brigida Ceron CNM [address] [address] 10/09/2022 11:26:53 10/09/2022 14:27:43 Cystic fibrosis screening 612151873 Z13.228 Fibrocysti c disease of breast 61592615 N60.19 Pelvic and perineal pain 821814193 R10.2 Reviewed US results. Normal uterus tubes and ovaries. Offered contracept ion to assist with pelvic pain prior to menses. States has used multiple types, OCP, POP, IUD and nuva Ring and does not wish to pursue any type of contracept ion at this time. All questions answered. Motrin for pain. [id number] [facility] [address] [place] [address] 01/02/2023 10:18:37 01/07/2023 09:15:33 Vaginal discharge 154307189 N89.8 N76.0 Menorrhagia 165564258 N9 2.0 Dysuria 24561707 R30.0 [id number] AWILDA IVY, SMITHA [address] [address] 05/12/2023 11:20:43 05/12/2023 16:52:09 Contraception care education 930393494 Z30.09 Pt comes in for Contracept kory Counseling . Patient is here to discuss BC Options. Patient states she has tried Mirena in the past twice and her uterus expelled it both times. She has tried the ring and it made her feel awful. Patient has tried lo loestrin in the past and it has worked the best for her. Patient states she is having an increase in mood swings, anxiety and PMS symptoms. -- Discussed options including OCPs, NuvaRing, Nexplanon, hormonal and copper IUDs. Discussed risks, efficacy, non contracept kory benefits, and side effects of each option, including risk of VTE with hormonal contracept ion and uterine perforatio n, expulsion, infection with IUD.--Disc ussed that contracept ion will not protect against STI's. Encourged Condom use. Discussed the various types of Infections and STIs, related symptoms and the potential consequenc es (including effects on fertility) of STI. Reviewed ways to limit exposure and prevention techniques .-- Declines STI testing today.-- Pt would like to proceed with Lo Loestrin, Samples given. Patient will return to clinic in 3 months for evaluation . CHC Category 1COUNSELIN G was provided today regarding the following: - ALEX use was discussed with the patient in detail including CHC risks,bene fits, side effects, and ACHES.- No absolute contraindi cations to ALEX use were identified .-Pt states she is aware and wants to continue pills at this time. [id number] SMITHA ROUSSEAU [facility] [address] [place] [address] 07/09/2023 11:30:16 07/10/2023 13:02:53 Pain in pelvis 25813561 R10.2 I have recommende d pelvic imaging to patientPos sible etiology of pain reviewed with patient. Possible GI and DIRECTOR OF FINANCIAL AID causes reviewedI have reviewed management options of expectant, medical or surgical management .Patient to follow up based on results. -Schedule pelvic ultrasound -PA case sent-Discu ssed generally benign nature of ovarian cysts-Medi lory Management discussed with patients, including oral contracept ion pills. Risk, benefit and use reviewed. Does not due well with HMB. Discussed Nextstelli s.-Medical management discussed with patient, including control pills, risks, benefits and use. Vaginal lump 149518632 R 19.09 Discussed pelvic and digital exam with patient. Normal findings at this time.Cervi x WNL, increase in discharge. Pt states just got off her period yesterday. Denies any itching or vaginal irritation . [id number] SMITHA ROUSSEAU [facility] [address] [place] [address] 07/20/2023 14:19:24 07/20/2023 19:19:11 Pain in pelvis 43616723 R10.2 Patient presents for pelvic pain follow up. Patient states today she is ok. Yesterday she was pretty crampy.-TV US today: Ovaries, endo WNL. No FF seen.-Disc ussed ovarian appearance on U/S with multiple follicles on both ovaries. No cysts seen at this time.-Cayla sosa would like to do PCOS workup. Will come back later in the week for fasting labs.-Cayla sosa has significan t family hx of nurse gynecology issues resulting in hysterecto mies around at 34-35yo.-D iscussed 1st line treatment HMB: pt has not done well with HMB in the past with the last being Loloestrin . Patient willing to try Nextstelli s. Sample provided.- Will RTC in 1 month for medication evaluation . Health Concerns Section Related Observation LastModified by Organization Detai ls LastModified Time None Recorded Concern Status LastModified by Organization Details LastModified Time None Recorded Advance Directives Directive None Recorded Payers Encounter Date Sequence Insurance Name Policy Number Policy Dorsey Covered Member ID Dorsey Member ID Guarantor Name 10/09/2022 2 [employer] [place] ON [place] AFTER 2020 (MEDICAID REPLACEMENT - HMO) Ranayie K Sharif [id number] Ranayie K Sharif 10/09/2022 1 [employer] - LIVE 360 (EPO) [id number] H Ranayie K Sharif [id number] Ranayie K Sharif 01/02/2023 2 [employer] [place]ICAID REPLACEMENT - HMO) Ranayie K Sharif [id number] Ranayie K Sharif 01/02/2023 1 [employer] - [place] (EPO) [id number] H Ranayie K Sharif [id number] Ranayie K Sharif 05/12/2023 2 [employer] [place]ICAID REPLAC[place] - HMO) Ranayie K Sharif [id number] Ranayie K Sharif 05/12/2023 1 [employer] - [employer] (EPO) [id number] H Ranayie K Sharif [id number] Ranayie K Sharif 07/09/2023 2 [employer] [place] ([place]ID REPLAC[place] - HMO) Ranclaudia Mcclain Sharif [id number] Paul Mcclain Sharif 07/09/2023 1 [employer] - [employer]IVE [employer] (EPO) [id number] H Paul Mcclain Sharif [id number] Harshadayrandy Mcclain Sharif 07/20/2023 2 [employer] [place] ([place]ICAID REPLAC[place] - HMO) Ranayie K Sharif [id number] Ranayie K Sharif 07/20/2023 1 [employer] - [employer]IVE 360 (EPO) [id number] H Ranclaudia Mcclain Sharif [id number] Ranayie Johny Sharif Notes Date Note Type Note Provider Name and Address Organization Details Recorded Time 10/09/2022 text/html Ranayia 32 y/o presents for fibroids consult.Pt reports irregular periods for a year and pelvic pain.Pt need a order for mammogram. Hx of biopsy for fibroids last year and needs follow up yearly.Pt had US in office. Brigida Ceron CNM [address] [facility], [place], [address], [facility] 10/09/2022 14:24:25 01/02/2023 text/html Vaginal/Vulvar ProblemReported bypatient.Location:[facility] Onset/Timing:started: (2 days after period started) Duration:present for 1-7 days Quality:burning Severity:worsening Context:sexually active; current contraception: (condoms); condom use: yes Associated Symptoms:vaginal itching;vaginal irritation;vulvar itching/irritationNot es:-used monistat OTC, had massive blood clots and move heavy bleeding with her last cycle, states cycles have been more heavy since getting covid vaccinated Li Murphy, ELLEN [address] [facility], [place], [address], [facility] 01/02/2023 11:29:10 05/12/2023 text/html Patient is here to discuss BC Options. Patient states she has tried Mirena in the past twice and her uterus expelled it both times. She has tried the ring and it made her feel awful. Patient has tried lo loestrin in the past and it has worked the best for her. Denies any concerns for STD or . SMITHA ROUSSEAU [address] [facility], [place], [address], [facility] IV 05/12/2023 12:18:58 07/09/2023 text/html Pt here for conc erns of lump found when checking cervical fluid, anterior vaginal wall.Pt states that she has been having intermittent pelvic pain monthly, but not at the same time every month. Patient states has a strong famly hx of ovarian cysts.Pt states that her cycle has been irregular with heavy bleeding 1-3 days followed by some spotting. SMITHA ROUSSEAU [address] [facility], [place], [address], [facility] IV 07/09/2023 14:03:52 07/20/2023 text/html Pt here to go ov er results of US.Pt states there have been no changes since last visit.Pt has no other questions or concerns. SMITHA ROUSSEAU [address] [facility], [place], [address], [facility] IV 07/20/2023 15:23:23 OBGyn Episode Ob Episode Information Episode Created Date Number of Fetuses Patient Bloodtype Patient rh Status Prepregnancy Weight lbs Domestic Partner Domestic Partner Phone Father Name Sow [employer] Manager Status 01/10/20 22 1 CLOSED Fetus Data First Name Last Name Admitted to NICU Weight (g) Sex Living Outcome Pediatric Complications Fetus ID Race Codes Race Delivery Type 2267.96 [id number] Isai Calculation Initial Isai Date Initial Exam Date Initial Exam Provider Initial Ultrasound Date Last Menstrual Period Date Ultra Sound Weeks Gestation 0 Eighteen To Twenty Week Isai Update Ultra Sound Date Fundal Height At Umbil Quickening Date Ultra Sound Latest Weeks Gestation Final Isai Confirmed By Final Isai Confirmed Date Final Isai Date Ultra Sound Latest Days Gestation 0 0 Menstrual History Last Menstrual Date Menses Monthly On Bcp Conception Prior Menses Frequency Hcg Plus Date Menarche Onset Age Delivery Information Delivery Date Delivery Type Labor Anesthesia Weeks Gestation Incision Type Labor Labor Length Hrs Delivered By Post Complications Tubal Sterilization Discharge Date Comments 7 260 false Comments : IUGR, cord pressures were increasin g, gestation al diabetes Discharge Information Feeding Method Contraceptive Method Maternal HG B and HCT Levels Ob Episode Information Episode Created Date Number of Fetuses Patient Bloodtype Patient rh Status Prepregnancy Weight lbs Domestic Partner Domestic Partner Phone Father Name Sow Farm Manager Status 01/10/20 22 1 CLOSED Fetus Data First Name Last Name Admitted to NICU Weight (g) Sex Living Outcome Pediatric Complications Fetus ID Race Codes Race Delivery Type 2267.96 [id number] Isai Calculation Initial Isai Date Initial Exam Date Initial Exam Provider Initial Ultrasound Date Last Menstrual Period Date Ultra Sound Weeks Gestation 0 Eighteen To Twenty Week Isai Update Ultra Sound Date Fundal Height At Umbil Quickening Date Ultra Sound Latest Weeks Gestation Final Isai Confirmed By Final Isai Confirmed Date Final Isai Date Ultra Sound Latest Days Gestation 0 0 Menstrual History Last Menstrual Date Menses Monthly On Bcp Conception Prior Menses Frequency Hcg Plus Date Menarche Onset Age Delivery Information Delivery Date Delivery Type Labor Anesthesia Weeks Gestation Incision Type Labor Labor Length Hrs Delivered By Post Complications Tubal Sterilization Discharge Date Comments 9 273 false Comments : GDM Discharge Information Feeding Method Contraceptive Method Maternal HG B and HCT Levels
--- OUTSIDE RECORDS SUMMARY | 2025-02-11 14:20 | XMS_ITS | Encounter Summary ---
Author Organization [facility] Address [address] [place] [address] Care Team Providers Care Actimize Architect Name Role Phone Ludwig Morales MD Primary Care Provider [phone] Perri Cohen NP Primary Care Provider + [phone] Americo Du DO Primary Care Provider [phone] Encounter Details Date Type Department Care Team (Late Contact Info) Description 04/02/2019 Abstract [facility] CONVERSION [address] [place] [address] , James Terrell MD Social History Tobacco Use Types Packs/Day Years Used Date Smoking Tobacco: Never Alcohol Use Standard Drinks/Week Comments No 0 (1 standard drink = 0.6 oz pur e alcohol) AUDIT-C Answer Date Recorded Frequency of Alcohol Consumption Never 02/05/2019 Average Number of Drinks Not on file 019 Frequency of Binge Drinking Not on file 01/24 Comments Yes Sex and Gender Information Value Date Recorded Sex Assigned at Not on file Legal Sex Female 12:19 PM CDT Gender Identity Not on file Sexual Orientation Not on file documented as of this encounter Plan of Treatment Upcoming Encounters Date Type Department Care Team (Late Contact Info) Description 02/27/2025 9:20 AM CDT Office Visit [facility] Family Medicine [facility] [address] [place] [address] Selvin Buckley MD [facility] [address] documented as of this encounter Visit Diagnoses Not on filedocumented in this encounter Additional Health Concerns Infection Onset Date Last Indicated Resolved Time COVID-19 Rule Out 10/08/2023 10/08/2023 10/08/2023 11:38 AM UROLOGIC NURSE documented as of this encounter Care Teams Actimize Architect Relationship Specialty Start Date End Date Ludwig Morales MD PCP - General INTERNAL MEDICINE 03/31/19 06/10/22 Perri Cohen NP [address] [place] [address] PCP - General NURSE PRACTITIONER 06/11/22 10/16/23 Americo Du DO [address] [place] [address] PCP - General FAMILY PRACTICE 10/17/23 documented as of this encounter
--- OUTSIDE RECORDS SUMMARY | 2025-02-11 14:20 | XMS_ITS | Encounter Summary ---
Author Organization [facility] Address [address] [place] [address] Care Team Providers Care Academic Support Center Director Name Role Phone Perri Cohen NP Primary Care Provider [phone] Americo Du DO Primary Care Provider [phone] Encounter Details Date Type Department Care Team (Late st Contact Info) Description 10/14/2023 Dog Digital Message [facility] Medical Group Family Medicine [facility] [address] [place] [id number] [email or web address] Provider Hospital follow up Social History Tobacco Use Types Packs/Day Years Used Date Smoking Tobacco: Never Smokeless Tobacco: Never Comments:non smoker Alcohol Use Standard Drinks/Week Comments Yes 0 (1 standard drink = 0.6 oz pur e alcohol) social [facility] Utilities Answer Date Recorded In the past 12 months has [facility] [employer], gas, oil, or water [employer] threatened to shut off services in your home? No 10/08/2023 Humiliation, Afraid, Rape, and Kick questionnair e Answer Date Recorded Within the last year, have y ou been afraid of your partner or ex-partner? No 10/08/2023 Within the last year, have y ou been humiliated or emotionally abused in other ways by your partner or ex-partner? No Within the last year, have y ou been kicked, hit, slapped, or otherwise physically hurt by your partner or ex-partner? No 10/08/2023 Within the last year, have y ou been raped or forced to have any kind of sexual activity by your partner or ex-partner? No 10/08/2023 AUDIT-C Answer Date Recorded Frequency of Alcohol Consumption Never 01/28/2021 Average Number of Drinks Not on file 021 Frequency of Binge Drinking Not on file 02/2021 Overall Financial Resource Strain (CARDIA) Answe r Date Recorded How hard is it for you to pa y for the very basics like food, housing, medical care, and heating? Not hard at all 10/08/2023 PHQ-2 Answer Date Recorded Patient Health Questionnaire-2 Score 0 02/10/2023 Hunger Vital Sign Answer Date Recorded Within the past 12 months, y ou worried that your food would run out before you got the money to buy more. Never true 10/08/20 23 Within the past 12 months, t he food you bought just didn't last and you didn't have money to get more. Never true 10/08/2023 PRAPARE - Transportation Answer Date Re corded In the past 12 months, has l ack of transportation kept you from medical appointments or from getting medications? No 09/25 In the past 12 months, has l ack of transportation kept you from meetings, work, or from getting things needed for daily living? No 10/08/2023 Housing Stability Vital Sign Answer Rob e Recorded In the last 12 months, was t here a time when you were not able to pay the mortgage or rent on time? No 10/08/2023 In the last 12 months, how many places have you lived? 1 10/08/2023 In the last 12 months, was t here a time when you did not have a steady place to sleep or slept in a assisted (including now)? No 10/08/2023 Comments No Sex and Gender Information Value Date Recorded Sex Assigned at Not on file Legal Sex Female 12:19 PM CDT Gender Identity Not on file Sexual Orientation Not on file documented as of this encounter Functional Status * Are you deaf or do you have serious difficulty hearing Answer Date of Assessment Author Status No 10/08/2023 5:01 PM Gayatri Alonzo RN Active * Are you blind or do you have serious difficulty seeing, even when wearing glasses? Answer Date of Assessment Author Status No 10/08/2023 5:01 PM Gayatri Alonzo RN Active * Do you have serious difficulty walking or climbing stairs? Answer Date of Assessment Author Status No 10/08/2023 5:01 PM Gayatri Alonzo RN Active * Do you have difficulty dressing or bathing? Answer Date of Assessment Author Status No 10/08/2023 5:01 PM Gayatri Alonzo RN Active * Because of a physical, mental, or emotional condition, do you have difficulty doing errands alone such as visiting a doctor's office or shopping? Answer Date of Assessment Author Status No 10/08/2023 5:01 PM Gayatri Alonzo RN Active * Calculated C-SSRS Risk Score (Lifetime/Recent) Answer Date of Assessment Author Status No Risk Indicated 10/17/2023 9:50 AM Mayuri Deutsch RN Active * [place] Suicide Severity Rating Scale (Screener/Recent Self-Report) Question Answer Date of Assessment Author Status 1. Wish to be (Past 1 Month) No 10/17/2023 9:50 AM Jeannie Deutsch RN A ctive 2. Non-Specific Active Suicidal Thoughts (Past 1 Month) No 10/17/2023 9:50 AM Jeannie Deutsch RN A ctive 6. Suicidal Behavior (Lifetime) No 10/17/2023 9:50 AM Jeannie Deutsch RN A ctive documented as of this encounter Mental Status * Because of a physical, mental, or emotional condition, do you have serious difficulty concentrating, remembering, or making decisions? Answer Entry Date Author Status No 10/08/2023 5:01 PM Gayatri Alonzo RN Active documented in this encounter Plan of Treatment Upcoming Encounters Date Type Department Care Team (Late st Contact Info) Description 02/27/2025 9:20 AM CDT Office Visit [facility] Medical Group Family Medicine - [place] [address] [place] [address] Selvin Buckley MD [address] [place] [address] documented as of this encounter Visit Diagnoses Not on filedocumented in this encounter Additional Health Concerns Assessment Noted Time PHQ-9 Depression Total Score: 0 11/11/19 11:29 AM FISHERIES ENFORCEMENT OFFICER documented as of this encounter Care Teams Academic Support Center Director Relationship Specialty Start Date End Date Perri Cohen NP [address] [place] [address] PCP - General NURSE PRACTITIONER 06/11/22 10/16/23 Americo Du DO [address] [place] [address] PCP - General FAMILY PRACTICE 10/17/23 documented as of this encounter
--- OUTSIDE RECORDS SUMMARY | 2025-02-11 14:20 | XMS_ITS | Clinical Summary ---
Author Organization [facility] Address [facility]ly [facility] [place] [address] Care Team Providers Care Base Filler Name Role Phone Americo Du DO Primary Care Provider [phone] Allergies Active Allergy Reactions Criticality Noted Date Comments Ciprofloxacin Rash Medium 08/19/2019 Ceftriaxone Hives,Rash Medium 08/18/2019 Varicella Virus Vaccine Live Anaphylaxis High 2014 Medications prochlorperazine (COMPAZINE) 10 MG tablet Take 1 tablet (10 mg total) by mouth every 6 (six) hours as needed (headache, nausea). 30 tablet 10/11/2023 Active ondansetron (ZOFRAN) 4 MG tablet Take 1 tablet (4 mg total) by mouth every 6 (six) hours as needed. Active ubrogepant (UBRELVY) 100 MG tabletIndication s:Migraine without aura, not intractable, without status migrainosus Take 1 tablet (100 mg total) by mouth 2 (two) times daily as needed. Max of 2 tablets (200 mg) in 24 hours 16 tablet 11 01/08/2024 Active clopidogrel (PLAVIX) 75 MG tablet Take 1 tablet (75 mg total) by mouth daily. 02/22/2024 Active aspirin 325 MG tablet Take 1 tablet (325 mg total) by mouth daily. 02/22/2024 Active naproxen sodium (ANAPROX) 220 MG tablet Take 1 tablet (220 mg total) by mouth 2 (two) times daily. 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 Intractable headache 10/08/2023 Sprain of carpal joint of right wrist, initial e ncounter 06/05/2023 Overview (06/05/2023): Added automatically from request for surgery [id number] Scapholunate instability of right wrist 06/05/20 23 Overview (06/05/2023): Added automatically from request for surgery [id number] Palpitations 07/04/2022 Anxiety 07/04/2022 Vitamin D deficiency 07/04/2022 Pelvic and perineal pain 08/07/2015 Overview (11/03/2023): Pelvic and perineal pain; Progress: Stable Added By: Siri Rueda Add to Current Problems: NO ProblemStatus: Resolve Resolved Problems Problem Noted Date Diagnosed Date Resolved Date Tension headache 08/21/2019 11/03/2023 Immunizations Immunization Administration Dates Next Due Dtap (Acel-Immune) 06/26/2015 Influenza Adult (Generic) 09/01/2023,08/05/2019, 07/26/2018,07/30/2017 Tdap (Generic) 08/05/2019,09/11/2017,05/29/2015 Varicella (Varivax) 06/27/2015 Family History Medical History Relation Comments Hypertension Father Breast Cancer Maternal Aunt Hypertension Mother Lung Cancer Mother Breast Cancer Paternal Aunt Heart Attack Paternal Grandmother Relation Status Comments Brother 1 Alive Brother 2 Alive Father Alive Maternal Aunt Maternal Grandfather Alive Maternal Grandmother Alive Mother Alive Paternal Aunt Paternal Grandfather (Age 72) Paternal Grandmother (Age 70) Sister Alive Social History Tobacco Use Types Packs/Day Years Used Date Smoking Tobacco: Never Passive Smoke Exposure: Never Smokeless Tobacco: Never Tobacco Cessation:Counseling Given: No Comments:Never Smoked Alcohol Use Standard Drinks/Week Comments Yes 0 (1 standard drink = 0.6 oz pur e alcohol) social [facility] Utilities Answer Date Recorded In the past 12 months has e [employer], gas, oil, or water [employer] threatened to shut off services in your [...] Answer Date Recorded Patient Health Questionnaire-2 Score 1 10/29/2023 Hunger Vital Sign Answer Date Recorded Within [...] place to sleep or slept in a residential (including now)? No 10/08/2023 Comments No Sex and Gender Information Value Date Recorded Sex Assigned at Not on file Legal Sex Female 12:19 PM CDT Gender Identity Not on file Sexual Orientation Not on file Last Filed Vital Signs Vital Sign Reading Time Taken Comments Blood Pressure 127/89 03/31/2024 9:59 AM CDT Pulse 90 03/31/2024 9:59 AM CDT Temperature 37 C (98.6 F) 03/31/2024 9:59 AM CDT Respiratory Rate 16 02/25/2024 12:51 PM CDT Oxygen Saturation 96% 03/31/2024 9:59 AM CDT Inhaled Oxygen Concentration - - Weight 61.8 kg (136 lb 3.2 oz) 03/31/2024 9:59 A M CDT Height 154.9 cm (5' 1 ) 03/31/2024 9:59 AM CDT Body Mass Index 25.73 03/31/2024 9:59 AM CDT Plan of Treatment Upcoming Encounters Date Type Department Care Team (Late st Contact Info) Description 02/27/2025 9:20 AM CDT Office Visit [facility] Medical [facility] Family Medicine - [place] [address] [place] [address] Selvin Buckley MD [address] [place] [address] Health Maintenance Due Date Last Done Comments Cervical Cancer Screening Pap Smear (Age 30 to 64) Every 3 Years 1991 Hepatitis B Vaccines (1 of 3 - 19+ 3-dose series) 2010 Annual Physical 07/04/2023 07/04/2022 COVID-19 Vaccine (2023- season) 2024 07/09/2021, 06/18/2021 PHQ-2 (Physician Arthur) 10/26/2024 10/29/2023 Cervical Cancer Screening Pap with HPV Testing (Age 30 to 64) Every 5 Years 03/20/2027 03/20/2022 Cervical Cancer Screening with HPV 03/20/2027 DTaP, Tdap and Td Vaccines (5 - Td or Tdap) 08/05/2029 08/05/2019, 09/11/2017, 06/26/2015, Additional history exists Hepatitis C Completed 07/10/2022 HPV Vaccines Aged Out No longer eligi ble based on patient's age to complete this topic Meningococcal B Vaccine Aged Out No l onger eligible based on patient's age to complete this topic Meningococcal Vaccine Aged Out No kimberly geremias eligible based on patient's age to complete this topic Pneumococcal Vaccine: Pediatrics (0 to 5 Years) and At-Risk Patients (6 to 49 Years) Aged Out No longer eligible based on patient's age to complete this topic RSV Immunizations Under 20 Months Aged Out No longer eligible based on patient's age to complete this topic Medical Devices Implanted Type Area Die Engraver Device Identifier Shelf Expiration Date Model / Serial / Lot [place] Ar[employer]rex Forked Eyelet Swivelock Dx 3.5x8.5 - [id number] Implanted:Qty: 1 on 06/10/2023 by Corey Tejada MD at [facility] [employer] Right: Wrist [employer] [id number] 05/25/2027 AR-8978P / / [id number] Internal Brace Hand & Wrist Lig Augment Repair - [id number] Implanted:Qty: 1 on 06/10/2023 by Corey Tejada MD at [facility] [employer] Right: Wrist [employer] [id number] 01/24/2028 AR-8978-CP / / [id number] K Wire Implanted:Qty: 1 on 12/27/2021 by Corey Tejada MD at [facility] Right: Wrist [id number] 08/29/2025 0810-5527 / / [id number] Kwire Implanted:Qty: 2 on 12/27/2021 by Corey Tejada MD at [facility] Right: Wrist [id number] 01/25/2025 / / [id number] Explanted Type Area Die Engraver Device Identifier Shelf Expiration Date Model / Serial / Lot Wire Fixation Jennifer Stainless [employer] L9 In Od.035 In 2 Tr - [id number] Explanted:Qty: 1 on 06/10/2023 by Corey Tejada MD at [facility] Right: Wrist [employer] [id number] / / Procedures Procedure Name Priority Date/Time Associated Diagnosis Comments HEPATITIS C ANTIBODY Routine 07/10/2022 10:33 AM CDT Need for hepatitis C screening test OUTSIDE CYTOPATH CERV/VAG INTERPRET (PAP) 03/20/2022 from Last 3 Months or Most Recently Relevant to Health Maintenance Results * HEPATITIS C AB ([facility] ONLY) (07/10/2022 10:33 AM CDT) HEPATITIS C AB NON-REACTI VE NON-REACTI VE 07/10/2022 1:09 PM CDT [facility] 07/10/2022 10:3 3 AM CDT Perri Cohen DATABASE COORDINATOR LABORATORY Final Res ult [facility] [address] [place] [address], * PAP SMEAR WITH HPV (03/20/2022) 03/20/2022 Narrative 03/20/2022 Ordered by an unspecified provider. us Documents Scanned SCANNING Final Result from Last 3 Months or Most Recently Relevant to Health Maintenance [place] [address] [address] [place] [address] INSURANCE UMR Advance Directives * Full Code (Latest Code Status on File) Date Activated Date Inactivated Comments 10/17/2023 12:57 PM 10/17/2023 5:39 PM * Full Code Date Activated Date Inactivated Comments 10/08/2023 2:23 PM 10/11/2023 5:27 PM Care Teams Base Filler Relationship Specialty Start Date End Date Americo Du DO [address] [place] [address] PCP - General FAMILY PRACTICE 10/17/23
--- OUTSIDE RECORDS SUMMARY | 2025-02-11 14:20 | XMS_ITS | Clinical Summary ---
Author Organization [facility] Address [address] [place] [address] Care Team Providers Care Digital Advertising Analyst Name Role Phone Unavailable Primary Care Provider Unavailabl e Social History Tobacco Use Types Packs/Day Years Used Date Smoking Tobacco: Never Assessed Comments Unknown Sex and Gender Information Value Date Recorded Sex Assigned at Not on file Legal Sex Female 11:47 AM CDT Gender Identity Not on file Sexual Orientation Not on file Plan of Treatment Health Maintenance Due Date Last Done Comments DTAP/TDAP/TD VACCINES (1 - Tdap) 2010 HEPATITIS B VACCINES (1 of 3 - 19+ 3-dose series) 2010 HPV/Cotest (21-29) 2012 CERVICAL CANCER SCREENING 2021 HPV/Cotest (30-65) 2021 PAP SMEAR 2021 INFLUENZA VACCINE (#1) 2024 HPV VACCINES Aged Out No longer eligi ble based on patient's age to complete this topic PNEUMOCOCCAL VACCINE 0-49 YEARS Aged Out No longer eligible based on patient's age to complete this topic
--- OUTSIDE RECORDS SUMMARY | 2025-02-11 14:20 | XMS_ITS | Clinical Summary ---
Author Organization [facility] [employer] Address [address] [facility] [place] [address] Care Team Providers Care Biostatistician Name Role Phone Primo Davis MD Unavailable Saadia Larsen POWER HAMMER OPERATOR Unavailable [phone] Americo Du DO Primary Care Provider [phone] Source Comments [facility] [employer],non-owned Affiliates and Associated Physician Practices is amultiple site organization consisting of ambulatory clinics and hospital sitesin [place], [place], [place] and [place]. This disclosure is being madepursuant to the Care Everywhere program and may not contain all information available regarding this patient. Last updated 18.[facility] [employer] Allergies Active Allergy Reactions Criticality Noted Date Comments Ciprofloxacin Rash Medium 08/19/2019 Ceftriaxone Rash Medium 08/18/2019 Varicella Virus Vaccine Live Anaphylaxis High 2014 Medications * Be aware that medications may not be up to date on this document. Alwaysverify current medications with the patient. prochlorperazine (Compazine) 10 MG tablet Take 1 (one) tablet by mouth every 8 hours as needed for Nausea/Vomiti ng Active ondansetron (Zofran) 4 MG tablet Take 1 (one) tablet by mouth every 6 hours as needed for Nausea/Vomiti ng Active ubrogepant (Ubrelvy) 100 MG tablet Take 1 (one) tablet by mouth daily as needed - may repeat one time for Migraine No more than 2 doses in 24 hours. Active naproxen sodium (Aleve) 220 MG tablet Take 1 (one) tablet by mouth 2 times daily Active multivitamin daily tablet Take 1 (one) tablet by mouth daily with food Active methylPREDNISolo ne (Medrol Dosepak) 4 MG tabletIndication s:Acute cough,Chest congestion,Upper respiratory tract infection, unspecified type Take by mouth as directed Take as directed by mouth per package instructions. 21 tablet 4 Active albuterol HFA (ProAir HFA) 108 (90 Base) MCG/ACT inhalerIndicatio ns:Acute cough,Chest congestion,Upper respiratory tract infection, unspecified type Inhale 2 (two) puffs by mouth every 4 hours as needed 8.5 g 4 Active Active Problems Problem Noted Date Diagnosed Date Headache 03/24/2024 Tachycardia 03/24/2024 Vein stenosis 03/23/2024 Tension headache 08/21/2019 Mastitis 08/18/2019 Resolved Problems Problem Noted Date Diagnosed Date Resolved Date 37 weeks gestation of 07/13/2019 08/06/2019 33 weeks gestation of 06/16/2019 08/06/2019 affected by growth restriction 05/17/2019 08/06/2019 Diet controlled gestational diabetes mellitus (GDM), antepartum 05/17/2019 08/06/2019 Encounter for supervision of normal , antepartum 04/24/2019 08/06/2019 38 weeks gestation of 10/06/2017 10/07/2017 Irregular contractions 09/17/201710/07 Painful lumpy left breast 01/18/2016 Right wrist pain 02/14/2015 10/07/2017 Immunizations Immunization Administration Dates Next Due DTaP VACCINE IM (6wk-6yrs) 06/26/2015 INFLUENZA VACCINE, QUADR. (F LUZONE; FLULAVAL; FLUARIX; AFLURIA QUADRIVALENT; 6MO+), 0.5 ML (IIV4) 08/05/2019 TDAP (7yrs+) 08/05/2019,05/29/2015 Family History Medical History Relation Name Comments Celiac Disease Father Diabetes Maternal Grandmother Cancer - Other Mother lung Glaucoma Mother Cancer - Breast Paternal Aunt Cancer - Other Paternal Grandfather lung Relation Name Status Comments Father Alive Maternal Grandmother Alive Mother Alive Paternal Aunt Paternal Grandfather Social History Tobacco Use Types Packs/Day Years Used Date Smoking Tobacco: Never Smokeless Tobacco: Never Tobacco Cessation:Counseling Given: Not Answered Alcohol Use Standard Drinks/Week Comments Not Currently 0 (1 standard drink = 0.6 oz pur e alcohol) social AUDIT-C Answer Date Recorded Q1: How often do you have a drink containing alc ohol? Monthly or less 03/23/2024 Q2: How many drinks containi ng alcohol do you have on a typical day when you are drinking? 1 or 2 03/23/2024 Q3: How often do you have si x or more drinks on one occasion? Never 03/23/2024 PHQ-2 Answer Date Recorded Patient Health Questionnaire-2 Score 0 09/19/2024 Comments No Sex and Gender Information Value Date Recorded Sex Assigned at Not on file Legal Sex Female 2:11 PM AUTOGRAPHER Gender Identity Not on file Sexual Orientation Not on file Last Filed Vital Signs Vital Sign Reading Time Taken Comments Blood Pressure 134/80 09/19/2024 1:27 PM AUTOGRAPHER Pulse 82 09/19/2024 1:27 PM AUTOGRAPHER Temperature 36.8 C (98.2 F) 09/19/2024 1:27 PM AUTOGRAPHER Respiratory Rate 18 03/24/2024 7:21 AM CDT Oxygen Saturation 98% 09/19/2024 1:27 PM AUTOGRAPHER Inhaled Oxygen Concentration - - Weight 62.5 kg (137 lb 12.8 oz) 09/19/2024 1:27 PM AUTOGRAPHER Height 154.9 cm (5' 1 ) 03/23/2024 7:15 AM CDT Body Mass Index 26.04 03/23/2024 7:15 AM CDT Plan of Treatment Health Maintenance Due Date Last Done Comments PAP SMEAR 1991 HEPATITIS B VACCINE (1 of 3 - 19+ 3-dose series) 2010 COVID-19 VACCINE ( - 2023- season) 2024 07/09/2021, 06/18/2021 DEPRESSION SCREENING 10/26/2024 09/19/2024 DTAP/TDAP/TD VACCINES (4 - Td or Tdap) 08/05/2029 08/05/2019, 06/26/2015, 05/29/2015 ZOSTER VACCINE (1 of 2) 2041 HIV SCREENING Completed 10/06/2017 HEPATITIS C SCREENING Completed 07/10/2022 INFLUENZA VACCINE Completed 08/31/2024, , 08/05/2019, Additional history exists HIB VACCINE Aged Out No longer eligi ble based on patient's age to complete this topic HPV VACCINE Aged Out No longer eligi ble based on patient's age to complete this topic MENINGOCOCCAL (Group B) VACCINE SHARED DECISION-MAKING Aged Out No longer eligible based on patient's age to complete this topic MENINGOCOCCAL GROUPS A/C/Y/W VACCINE Aged Out No longer eligible based on patient's age to complete this topic PNEUMOCOCCAL VACCINE Aged Out No long er eligible based on patient's age to complete this topic Procedures Procedure Name Priority Date/Time Associated Diagnosis Comments HIV-1 HIV-2 ANTIBODY + HIV P24 AG PANEL JOHANNA 10/06/2017 3:24 PM AUTOGRAPHER 38 weeks gestation of from Last 3 Months or Most Recently Relevant to Health Maintenance Results * HIV-1 HIV-2 ANTIBODY + HIV P24 AG PANEL (10/06/2017 3:24 PM AUTOGRAPHER) HIV1/2 Ab + P24 Ag Negative Negative 10/06/2017 4:52 PM AUTOGRAPHER [facility] Blood BLOOD SPECIMEN / Unknown Lab Venipuncture / Unknown 10/06/2017 3:24 PM AUTOGRAPHER 10/06/2017 3:29 PM AUTOGRAPHER Christie Owens HAZMAT CDL A DRIVER-CNM LAB - CHEMISTRY ORDERAB LES Final Result [facility] [address] [place], [place] [id number] [place] [address] from Last 3 Months or Most Recently Relevant to Health Maintenance Insurance [facility] PAYOR GENERIC PAYOR GENERIC [id number] [place] [address] TPL THIRD DEMOCRAT LIABILITY Advance Directives * Full Code (Latest Code Status on File) Date Activated Date Inactivated Comments 03/23/2024 8:02 PM 03/24/2024 1:17 PM * Full Code Date Activated Date Inactivated Comments 08/18/2019 1:02 PM 08/22/2019 3:02 PM * Full Code Date Activated Date Inactivated Comments 08/05/2019 6:45 AM 08/06/2019 4:58 PM * Full Code Date Activated Date Inactivated Comments 08/05/2019 6:20 AM 08/05/2019 6:45 AM * Full Code Date Activated Date Inactivated Comments 07/13/2019 3:57 PM 07/13/2019 8:01 PM Care Teams Biostatistician Relationship Specialty Start Date End Date Americ[place] [address] [place] [address] PCP - General Family Medicine 11/05/23 Primo Davis MD [address] [phone] Pulmonary Disease 09/09/17 Saadia Larsen, RAPHAEL [address] Pared[address] Attn: [place] [address] Pencils Washer Counselor 08/19/19
--- OUTSIDE RECORDS SUMMARY | 2025-02-11 14:20 | XMS_ITS | Encounter Summary ---
Author Organization [facility] Address [address] [place] [address] Care Team Providers Care Academic Interventionist Name Role Phone Perri Cohen NP Primary Care Provider [phone] Americo Du DO Primary Care Provider [phone] Encounter Details Date Type Department Care Team (Late st Contact Info) Description 10/13/2023 [facility] Message [employer] [facility] [address] [place] [phone] Cassandra, [facility] Provider [facility] Check In Social History Tobacco Use Types Packs/Day Years Used Date Smoking Tobacco: Never Smokeless Tobacco: Never Comments:non smoker Alcohol Use Standard Drinks/Week Comments Yes 0 (1 standard drink = 0.6 oz pur e alcohol) social [facility] Utilities Answer Date Recorded In the past 12 months has e [employer], gas, oil, or water [employer] threatened to shut off services in your [...] place to sleep or slept in a custodial (including now)? No 10/08/2023 Comments No Sex [...] 5:01 PM Gayatri Alonzo RN Active documented as of this encounter Mental Status [...] Description 02/27/2025 9:20 AM CDT Office Visit [facility] Family Medicine - [place] [address] [place] [phone] Selvin Buckley MD [address] [facility] [place] [address] documented as of this encounter Visit Diagnoses Not on filedocumented in this encounter Additional Health Concerns Assessment Noted Time PHQ-9 Depression Total Score: 0 11/11/19 11:29 AM ENROLLMENT SERVICES DEAN documented as of this encounter Care Teams Academic Interventionist Relationship Specialty Start Date End Date Perri Cohen NP [address] [place] [address] PCP - General NURSE PRACTITIONER 06/11/22 10/16/23 Americo Du DO [address] [place] [address] PCP - General FAMILY PRACTICE 10/17/23 documented as of this encounter
--- OUTSIDE RECORDS SUMMARY | 2025-02-11 14:20 | XMS_ITS | Encounter Summary ---
Author Organization [facility] Address [address] [place] [address] Care Team Providers Care Buffing Line Set Up Worker Name Role Phone Americo Du DO Primary Care Provider [phone] Encounter Details Date Type Department Care Team (Late st Contact Info) Description 10/23/2023 [employer] Message Enc [facility] Medical Group Multispecialty Care - [facility] [address] [facility], [address] [place] [phone] [employer], [facility] Provider FMLA forms Social History Tobacco Use Types Packs/Day Years Used Date Smoking Tobacco: Never Smokeless Tobacco: Never Comments:non smoker Alcohol Use Standard Drinks/Week Comments Yes 0 (1 standard drink = 0.6 oz pur e alcohol) social [facility] Utilities Answer Date Recorded In the past 12 months has e [employer], gas, oil, or water [employer] threatened to shut off services in your [...] place to sleep or slept in a senior living (including now)? No 10/08/2023 Comments No Sex [...] Description 02/27/2025 9:20 AM CDT Office Visit [facility] Medical [facility] Family Medicine [address] [phone] Selvin Buckley MD [address] [place] [address] documented as of this encounter Visit Diagnoses Not on filedocumented in this encounter Additional Health Concerns Assessment Noted Time PHQ-9 Depression Total Score: 0 11/11/19 22 11:29 AM REAL ESTATE CLERK documented as of this encounter Care Teams Buffing Line Set Up Worker Relationship Specialty Start Date End Date Americo Du DO [address] [place] [address] PCP - General FAMILY PRACTICE 10/17/23 documented as of this encounter
[2025-02-11 14:22] VITALS: BP 133/87; PULSE 96; RESP 14; TEMP 36.8; O2SAT 100
--- OUTSIDE RECORDS SUMMARY | 2025-02-11 14:41 | XMS_ITS | Encounter Summary ---
Author Organization [facility] Address [address] [place] [address] Care Team Providers Care Pail Tester Name Role Phone Perri Cohen NP Primary Care Provider [phone] Americo Du DO Primary Care Provider [phone] Encounter Details Date Type Department Care Team (Late st Contact Info) Description 10/13/2023 Digital [employer]ault Message [employer] [facility] [address] [place] [phone] Cassandra, [facility] Provider [facility] Check In Social History Tobacco Use Types Packs/Day Years Used Date Smoking Tobacco: Never Smokeless Tobacco: Never Comments:non smoker Alcohol Use Standard Drinks/Week Comments Yes 0 (1 standard drink = 0.6 oz pur e alcohol) social [facility] Utilities Answer Date Recorded In the past 12 months has e [employer], gas, oil, or water [employer] threatened to shut off services in your [...] place to sleep or slept in a intermediate (including now)? No 10/08/2023 Comments No Sex [...] Description 02/27/2025 9:20 AM CDT [facility] Family [facility] - [place] [address] [place] [phone] Selvin Buckley MD [address] [facility] [place] [address] documented as of this encounter Visit Diagnoses Not on filedocumented in this encounter Additional Health Concerns Assessment Noted Time PHQ-9 Depression Total Score: 0 11/11/19 11:29 AM PHARMACY OPERATIONS SPECIALIST documented as of this encounter Care Teams Pail Tester Relationship Specialty Start Date End Date Perri Cohen NP [address] [place] [address] PCP - General NURSE PRACTITIONER 06/11/22 10/16/23 Americo Du DO [address] [place] [address] PCP - General FAMILY PRACTICE 10/17/23 documented as of this encounter
--- OUTSIDE RECORDS SUMMARY | 2025-02-11 14:41 | XMS_ITS | Clinical Summary ---
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 No 10/08/2023 Comments No Sex [...] Description 02/27/2025 9:20 AM CDT Office Visit [facility] Family Medicine - [place] [address] [place] [address] Selvin Buckley MD [address] [facility] [address] Health Maintenance Due Date Last Done Comments Cervical Cancer Screening Pap Smear (Age 30 to 64) Every 3 Years 1991 Hepatitis B Vaccines (1 of 3 - 19+ 3-dose series) 2010 Annual Physical 07/04/2023 07/04/2022 COVID-19 Vaccine (2023- season) 2024 07/09/2021, 06/18/2021 PHQ-2 (Physician [place]) 10/26/2024 10/29/2023 Cervical Cancer Screening Pap with [...] this topic Medical Devices Implanted Type Area Security Installation Technician Device Identifier Shelf Expiration Date Model / Serial / Lot [place] Ar[employer]rex Forked Eyelet Swivelock Dx 3.5x8.5 - [id number] Implanted:Qty: 1 on 06/10/2023 by Corey Tejada MD at [facility] [place] Right: Wrist [employer] [id number] 05/25/2027 [id number]-[id number] / / [id number] Internal Brace Hand & Wrist Lig Augment Repair - [id number] Implanted:Qty: 1 on 06/10/2023 by Corey Tejada MD at [facility] [place] Right: Wrist [employer] [id number] 01/24/2028 AR-8978-CP / / [id number] K Wire Implanted:Qty: 1 on 12/27/2021 by Corey Tejada MD at [facility] Right: Wrist [id number] 08/29/2025 [id number] / / [id number] [employer] Implanted:Qty: 2 on 12/27/2021 by Corey Tejada MD at [facility] Right: Wrist [id number] 01/25/2025 / / [id number] Explanted Type Area Security Installation Technician Device Identifier Shelf Expiration Date Model / Serial / Lot Wire Fixation Jennifer [employer]ain[employer] L9 In Od.035 In 2 Tr - [id number] Explanted:Qty: 1 on 06/10/2023 by Corey Tejada MD at [facility] Right: Wrist [employer] [id number] / / Procedures Procedure Name Priority Date/Time Associated Diagnosis Comments HEPATITIS C ANTIBODY Routine 07/10/2022 10:33 AM CDT Need for hepatitis C screening test OUTSIDE CYTOPATH CERV/VAG INTERPRET (PAP) 03/20/2022 from Last 3 Months or Most Recently Relevant to Health Maintenance Results * HEPATITIS C AB ([facility] ONLY) (07/10/2022 10:33 AM CDT) HEPATITIS C AB NON-REACTI VE NON-REACTI VE 07/10/2022 1:09 PM CDT [facility] 07/10/2022 10:3 3 AM CDT Perri Cohen STERILIZATION SPECIALIST LABORATORY Final Res ult [facility] [address] [place] [address], * PAP SMEAR WITH HPV (03/20/2022) 03/20/2022 Narrative 03/20/2022 Ordered by an unspecified provider. us Documents Scanned SCANNING Final Result from Last 3 Months or Most Recently Relevant to Health Maintenance [place] [address] [address] [place] [address] INSURANCE [employer] Advance Directives * Full Code (Latest Code Status on File) Date Activated Date Inactivated Comments 10/17/2023 12:57 PM 10/17/2023 5:39 PM * Full Code Date Activated Date Inactivated Comments 10/08/2023 2:23 PM 10/11/2023 5:27 PM Care Teams Pt Skilled Relationship Specialty Start Date End Date Americo Du DO [address] [place] [address] PCP - General FAMILY PRACTICE 10/17/23
--- OUTSIDE RECORDS SUMMARY | 2025-02-11 14:41 | XMS_ITS | Clinical Summary ---
Author Organization [facility] Address [address] [place] [address] Care Team Providers Care Production Operations Inspector Name Role Phone Unavailable Primary Care Provider [...]
--- OUTSIDE RECORDS SUMMARY | 2025-02-11 14:41 | XMS_ITS | Encounter Summary ---
Author Organization [facility] Address [address] [place] [address] Care Team Providers Care Rn Interventional Name Role Phone Ludwig Morales MD Primary Care Provider [phone] Perri Cohen NP Primary Care Provider [phone] Americo Du DO Primary Care Provider [phone] Encounter Details Date Type Department Care Team (Late Contact Info) Description 04/02/2019 Abstract [facility] CONVERSION [address] [place] [address] , James Terrell MD Social History Tobacco [...] Description 02/27/2025 9:20 AM CDT Office Visit [facility] Family Medicine [facility] [address] [place] [address] Selvin Buckley MD [facility] [place] [address] documented as of this encounter Visit Diagnoses Not on filedocumented in this encounter Additional Health Concerns Infection Onset Date Last Indicated Resolved Time COVID-19 Rule Out 10/08/2023 10/08/2023 10/08/2023 11:38 AM WORKING FOREMAN documented as of this encounter Care Teams Rn Interventional Relationship Specialty Start Date End Date Ludwig Morales MD PCP - General INTERNAL MEDICINE 03/31/19 06/10/22 Perri Cohen NP [address] [place] [address] PCP - General NURSE PRACTITIONER 06/11/22 10/16/23 Americo Du DO 1 [place] [address] PCP - General FAMILY PRACTICE 10/17/23 documented as of this encounter
--- OUTSIDE RECORDS SUMMARY | 2025-02-11 14:41 | XMS_ITS | Encounter Summary ---
Author Organization [facility] Address [address] [place] [address] Care Team Providers Care Automotive Upholsterer Name Role Phone Americo Du DO Primary Care Provider [phone] Encounter Details Date Type Department Care Team (Late st Contact Info) Description 10/23/2023 Vahna Message Enc [facility] Medical Group Multispecialty Care - [facility] [address] [facility], [address] [place] [phone] [employer], [facility] Provider FMLA forms Social History Tobacco Use Types Packs/Day Years Used Date Smoking Tobacco: Never Smokeless Tobacco: Never Comments:non smoker Alcohol Use Standard Drinks/Week Comments Yes 0 (1 standard drink = 0.6 oz pur e alcohol) social [facility] Utilities Answer Date Recorded In the past 12 months has e [employer], gas, oil, or water [employer] threatened to shut off services in your [...] place to sleep or slept in a usp (including now)? No 10/08/2023 Comments No Sex [...] Description 02/27/2025 9:20 AM CDT Office Visit [facility] Medical Group Family Medicine [address] [phone] Selvin Buckley MD [address] [facility] [place] [address] documented as of this encounter Visit Diagnoses Not on filedocumented in this encounter Additional Health Concerns Assessment Noted Time PHQ-9 Depression Total Score: 0 11/11/19 22 11:29 AM MACHINE III COREMAKER documented as of this encounter Care Teams Automotive Upholsterer Relationship Specialty Start Date End Date Americo Du DO [address] [place] [address] PCP - General FAMILY PRACTICE 10/17/23 documented as of this encounter
--- OUTSIDE RECORDS SUMMARY | 2025-02-11 14:41 | XMS_ITS | Clinical Summary ---
Author Organization [facility] [employer] Address [address] [facility] [place] [address] Care Team Providers Care Fixed Interest Dealer Name Role Phone Primo Davis MD Unavailable Saadia Larsen SECURITY SYSTEMS ADMINISTRATOR Unavailable [phone] Americo Du DO Primary Care Provider [phone] Source Comments [facility] [employer],non-owned Affiliates and Associated Physician Practices is amultiple site organization consisting of ambulatory clinics and hospital sitesin [place], [place], [place] and [place]. This disclosure is being madepursuant to the Care Everywhere program and may not contain all information available regarding this patient. Last updated 18.[facility] [employer] Allergies Active Allergy Reactions Criticality Noted Date [...] on file Legal Sex Female 2:11 PM EQUIPMENT PLANNER Gender Identity Not on file Sexual Orientation Not on file Last Filed Vital Signs Vital Sign Reading Time Taken Comments Blood Pressure 134/80 09/19/2024 1:27 PM EQUIPMENT PLANNER Pulse 82 09/19/2024 1:27 PM EQUIPMENT PLANNER Temperature 36.8 C (98.2 F) 09/19/2024 1:27 PM EQUIPMENT PLANNER Respiratory Rate 18 03/24/2024 7:21 AM CDT Oxygen Saturation 98% 09/19/2024 1:27 PM EQUIPMENT PLANNER Inhaled Oxygen Concentration - - Weight 62.5 kg (137 lb 12.8 oz) 09/19/2024 1:27 PM EQUIPMENT PLANNER Height 154.9 cm (5' 1 ) 03/23/2024 [...] P24 AG PANEL JOHANNA 10/06/2017 3:24 PM EQUIPMENT PLANNER 38 weeks gestation of from Last 3 Months or Most Recently Relevant to Health Maintenance Results * HIV-1 HIV-2 ANTIBODY + HIV P24 AG PANEL (10/06/2017 3:24 PM EQUIPMENT PLANNER) HIV1/2 Ab + P24 Ag Negative Negative 10/06/2017 4:52 PM EQUIPMENT PLANNER [facility] Blood BLOOD SPECIMEN / Unknown Lab Venipuncture / Unknown 10/06/2017 3:24 PM EQUIPMENT PLANNER 10/06/2017 3:29 PM EQUIPMENT PLANNER Christie Owens POCKET CREASER-CNM LAB - CHEMISTRY ORDERAB LES Final Result [facility] [address] [place], [place] [id number] [place] [address] from Last 3 Months or Most Recently Relevant to Health Maintenance Insurance [facility] PAYOR GENERIC PAYOR GENERIC [phone] [place] [address] TPL THIRD CONSTITUTION PARTY LIABILITY Advance Directives * Full Code (Latest [...] 3:57 PM 07/13/2019 8:01 PM Care Teams Fixed Interest Dealer Relationship Specialty Start Date End Date Americo Du [place] [address] PCP - General Family Medicine 11/05/23 Primo Davis MD [address] [phone] Pulmonary Disease 09/09/17 Saadia Larsen, RAPHAEL [address] Paredes Attn: [place] [address] Foil Stamp Operator Counselor 08/19/19
--- OUTSIDE RECORDS SUMMARY | 2025-02-11 14:41 | XMS_ITS | Encounter Summary ---
Author Organization [facility] Address [address] [place] [id number] Care Team Providers Care Rn Clinical Resource Name Role Phone Perri Cohen NP Primary Care Provider [phone] Americo Du DO Primary Care Provider [phone] Encounter Details Date Type Department Care Team (Late st Contact Info) Description 10/14/2023 [employer] Message [facility] Family Medicine [facility] [address] [place] [id number] [place], [facility] Provider Hospital follow up Social History Tobacco Use Types Packs/Day Years Used Date Smoking Tobacco: Never Smokeless Tobacco: Never Comments:non smoker Alcohol Use Standard Drinks/Week Comments Yes 0 (1 standard drink = 0.6 oz pur e alcohol) social [facility] Utilities Answer Date Recorded In the past [address] [facility] [employer], gas, oil, or water [employer] threatened to shut off services in your [...] place to sleep or slept in a mcc (including now)? No 10/08/2023 Comments No Sex [...] 9:50 AM Mayuri Deutsch RN Active * [place] Suicide Severity Rating Scale (Screener/Recent Self-Report) Question [...] Description 02/27/2025 9:20 AM CDT Office Visit [facility] Family Medicine - [place] [address] [place] [address] Selvin Buckley MD [address] [place] [address] documented as of this encounter Visit Diagnoses Not on filedocumented in this encounter Additional Health Concerns Assessment Noted Time PHQ-9 Depression Total Score: 0 11/11/19 11:29 AM CELL MANAGER documented as of this encounter Care Teams Rn Clinical Resource Relationship Specialty Start Date End Date Perri Cohen NP [address] [place] [address] PCP - General NURSE PRACTITIONER 06/11/22 10/16/23 Americo Du DO [address] [place] [address] PCP - General FAMILY PRACTICE 10/17/23 documented as of this encounter
--- NOTE | 2025-02-11 15:07 | ED.GENADULT ---
HPI - General Adult General Chief complaint: Abdominal Pain Stated complaint: Abd pain,N/V- pain increasing Time Seen by Provider: 02/11/25 14:34 History of Present Illness HPI narrative: 34-year-old female present to the emergency department for evaluation for nausea vomiting and right upper quadrant abdominal pain. Patient states she has had intermittent issues with this for last few weeks. Patient has been taking omeprazole without significant improvement. Denies any prior history of gallbladder disease. Related Data Allergies Allergy/AdvReac Type Severity Reaction Status Date / Time ceftriaxone (From Rocephin) Allergy Hives Verified 02/11/25 15:35 ciprofloxacin (From Cipro) Allergy Hives Verified 02/11/25 15:35 Review of Systems Review of Systems: All systems reviewed & are unremarkable except as noted in HPI and below Exam Narrative: APPEARANCE: Uncomfortable appearing HEAD: normocephalic, atraumatic. EYES: PERRLA/EOMI, conjunctivae clear. NOSE: Normal no drainage EARS:TMS clear with good light reflex. THROAT: Pharynx clear, no exudate. NECK: Supple. No adenopathy, no masses. RESPIRATORY: Airway patent, respirations nonlabored. Clear to auscultation bilaterally, no rales, rhonchi, wheezing. CARDIOVASCULAR: Regular rate and rhythm without murmurs rubs or gallops. ABDOMINAL: Right upper quadrant tenderness to palpation MUSCULOSKELETAL: Moves all extremities. Strength/ROM intact, No edema, No calf tenderness. NEURO: Alert. Cranial nerves II through XII intact. Good gait. Good coordination SKIN: Warm, dry. Normal Color Course Vital Signs Vital signs: Vital Signs Temperature 98.2 F 02/11/25 14:22 Pulse Rate 96 02/11/25 14:22 Respiratory Rate 14 02/11/25 14:22 Blood Pressure 133/87 02/11/25 14:22 Pulse Oximetry 100 02/11/25 14:22 Temperature 98.2 F 02/11/25 14:22 Pulse Rate 96 02/11/25 14:22 Respiratory Rate 14 02/11/25 14:22 Blood Pressure 133/87 02/11/25 14:22 Pulse Oximetry 100 02/11/25 14:22 Medical Decision Making [facility] Narrative Medical decision making narrative: 34-year-old female presents emergency department for evaluation for right upper quadrant abdominal pain. Patient declined any medications for pain control. Patient will be treated with 1 L of lactated Ringer's and Zofran for nausea control. Right upper quadrant ultrasound was ordered. Patient is currently afebrile with no leukocytosis and hemoglobin of 12.8. Patient has no acute abnormalities on her CMP with normal T bili AST ALT alk-phos and lipase. Patient did have some ketones on her urine along with leukocyte esterase positive high white blood cells +4 bacteria with moderate squamous. Patient denies any urinary symptoms. Urine culture was ordered. Patient was updated the urine culture pain word. Patient will be provided follow-up with surgery. Differential Diagnosis Differential Diagnosis: Biliary colic, cholelithiasis, cholecystitis, UTI Vital Signs Vital Signs: Vital Signs Temperature 98.2 F 02/11/25 14:22 Pulse Rate 96 02/11/25 14:22 Respiratory Rate 14 02/11/25 14:22 Blood Pressure 133/87 02/11/25 14:22 Pulse Oximetry 100 02/11/25 14:22 Temperature 98.2 F 02/11/25 14:22 Pulse Rate 96 02/11/25 14:22 Respiratory Rate 14 02/11/25 14:22 Blood Pressure 133/87 02/11/25 14:22 Pulse Oximetry 100 02/11/25 14:22 Lab Data Lab results reviewed: Yes I reviewed the patient's lab results. 02/11/25 15:02 02/11/25 15:02 Labs: Lab Results 02/11/25 02/11/25 02/11/25 Range/Units 15:02 15:14 15:19 WBC 8.7 (4.5-10.0) K/mm3 RBC 4.53 (4.2-5.4) M/mm3 Hgb 12.8 (12.0-15.0) g/dL Hct 39.8 (37.0-47.0) % MCV 87.9 (80-100) fl MCH 28.3 (26-34) pg MCHC 32.2 (32-36) g/dl RDW 12.1 (11.5-14.5) % Plt Count 289 (150-375) k/mm3 MPV 9.6 (7.4-10.4) fl Immature Gran % (Auto) 0.3 (0-0.5) % Neut % (Auto) 58.2 (45.5-73.1) % Lymph % (Auto) 32.4 (18.3-44.2) % Sheridan % (Auto) 7.4 (2.6-8.5) % Eos % (Auto) 1.4 (0-4.4) % Baso % (Auto) 0.3 (0.2-1.2) % Lymph # (Auto) 2.81 (0.9-3.2) K/mm3 Sheridan # (Auto) 0.6 (0.1-0.6) K/mm3 Eos # (Auto) 0.1 (0-0.3) K/mm3 Baso # (Auto) 0.0 (0.0-0.1) K/mm3 Abs Immat Gran (auto) 0.03 (0.00-0.031) K/mm3 Absolute Neuts (auto) 5.1 (1.3-6.7) K/mm3 Absolute Nucleated RBC 0.000 (0.0-0.012) K/mm3 Nucleated RBC % 0.0 (0.0-0.2) % Sodium 137 (137-145) mmol/L Potassium 3.6 (3.4-5.0) mmol/L Chloride 104 (98-107) mmol/L Carbon Dioxide 25 (22-30) mmol/L Anion Gap 8 (4-12) mmol/L BUN 17 (7-17) mg/dL Creatinine 0.85 (0.7-1.0) mg/dL Estim Creat Clear Calc 62 ml/min Estimated GFR > 60 (59 - ) Glucose 104 (65-110) mg/dL Calcium 9.1 (8.4-10.2) mg/dL Total Bilirubin 0.6 (0.2-1.3) mg/dL AST 24 (14-36) U/L ALT 19 (6-35) U/L Alkaline Phosphatase 59 (38-126) U/L Total Protein 7.0 (6.3-8.2) g/dL Albumin 4.4 (3.5-5.1) g/dL Lipase 62 (23-300) U/L Urine Color Yellow (Yellow) Urine Appearance Cloudy H (Clear) Urine pH 6.5 (5.0-9.0) Ur Specific [place] 1.026 (1.001-1.035) Urine Protein Negative (Negative) mg/dL Urine Glucose (UA) Negative (Negative) mg/dL Urine Ketones Trace H (Negative) mg/dL Ur Blood (Man) Negative (Negative) Urine Nitrate Negative (Negative) Urine Bilirubin Negative (Negative) Urine Urobilinogen 1.0 (<2.0) mg/dL Leukocyte Esterase Rfl 2+ H (Negative) JESSIE/UL Urine RBC 0-2 (0-2) /hpf Urine WBC 11-20 H (0-3) /hpf Ur Squamous Epith Cells Moderate (Few) /hpf Urine Bacteria 4+ H /hpf Urine Casts 0-2 POC Urine HCG, Qual Negative (Negative) Imaging Data Radiologist's impression: Impressions Abdomen Ultrasound 02/11/25 16:22 IMPRESSION: normal limited abdominal ultrasound. Discharge Plan Discharge Clinical Impression: Right upper quadrant abdominal pain Patient Disposition: Home Condition: Stable Instructions: Antibiotic Form, Biliary Colic (ED), Abdominal Pain (ED) Additional Instructions: Follow a low-fat diet, avoid alcohol. Zofran as needed for nausea control. Reglan as needed for additional nausea control. Mohler as needed for pain control. Have close follow-up with your primary care physician to schedule an outpatient HIDA scan. Have close follow-up with surgery. If you have any worsening symptoms then please call or return to the emergency department. Patient Language: Ethiopian Prescriptions: New hydrocodone-acetaminophen 5-325 mg tablet 1 tablet PO Q12H PRN (Reason: pain) Qty: 14 0RF metoclopramide HCl [Reglan] 10 mg tablet 10 mg PO Q6H PRN (Reason: nausea and vomiting) Qty: 14 0RF ondansetron 4 mg tablet,disintegrating 4 mg PO Q8H PRN (Reason: nausea and vomiting) Qty: 14 0RF No Action amoxicillin 500 mg tablet 1,000 mg PO DAILY 10 Days Qty: 20 0RF Follow-up/Referrals: PHYSICIAN NOT ON STAFF,NONSTAFF [Primary Care Provider] - Anish Simeon DO [Physician] -
[2025-02-11 15:09] LABS: Basophils Percent Auto 0.3 % (0.2-1.2); Eosinophils Absolute Auto 0.1 K/mm3 (0-0.3); Eosinophils Percent Auto 1.4 % (0-4.4); Hematocrit 39.8 % (37.0-47.0); Hemoglobin 12.8 g/dL (12.0-15.0); Immature Granulocyte Absolute 0.03 K/mm3 (0.00-0.031); Immature Granulocyte Percent A 0.3 % (0-0.5); Lymphocytes Absolute Auto 2.81 K/mm3 (0.9-3.2); Lymphocytes Percent Auto 32.4 % (18.3-44.2); Mean Corpuscular HGB Conc 32.2 g/dl (32-36); Mean Corpuscular Hemoglobin 28.3 pg (26-34); Mean Corpuscular Volume 87.9 fl (80-100); Mean Platelet Volume 9.6 fl (7.4-10.4); Monocytes Absolute Auto 0.6 K/mm3 (0.1-0.6); Monocytes Percent Auto 7.4 % (2.6-8.5); Neutrophils Absolute Auto 5.1 K/mm3 (1.3-6.7); Neutrophils Percent Auto 58.2 % (45.5-73.1); Platelet Count Result 289 k/mm3 (150-375); Red Blood Count 4.53 M/mm3 (4.2-5.4); Red Cell Distribution Width 12.1 % (11.5-14.5); White Blood Count 8.7 K/mm3 (4.5-10.0)
[2025-02-11] MEDS: LACTATED RINGERS 1,000 ML 999 ML IV CONT (15:12)
[2025-02-11] MEDS: ONDANSETRON INJ 4 MG/2 ML VIAL IV PUSH (15:12)
[2025-02-11 15:18] LABS: Alanine Aminotransferase 19 U/L (6-35); Albumin Level 4.4 g/dL (3.5-5.1); Alkaline Phosphatase 59 U/L (38-126); Anion Gap 8 mmol/L (4-12); Aspartate Amino Transferase 24 U/L (14-36); Bilirubin,Total 0.6 mg/dL (0.2-1.3); Blood Urea Nitrogen 17 mg/dL (7-17); Calcium 9.1 mg/dL (8.4-10.2); Carbon Dioxide 25 mmol/L (22-30); Chloride 104 mmol/L (98-107); Estimated CRCL calculation 62 ml/min; Estimated Glomerular Filt Rate > 60; Glucose 104 mg/dL (65-110); Lipase 62 U/L (23-300); Potassium 3.6 mmol/L (3.4-5.0); Sodium 137 mmol/L (137-145)
[2025-02-11 15:21] LABS: BEDSIDEPREGUCG Negative (Negative)
[2025-02-11 15:25] LABS: Add Urine Microscopic? YES; Appearance Urine Cloudy (Clear); Bacteria Urine 4+ /hpf; Bilirubin Urine Negative (Negative); Blood Urine Negative (Negative); Color Urine Yellow (Yellow); Glucose Urine UA Negative (Negative); Ketones Urine Trace mg/dL (Negative); Leukocyte Esterase Ur 2+ LEU/UL (Negative); Nitrate Urine Negative (Negative); Non Pathogenic Casts 0-2; Protein Urine Negative (Negative); RBC Urine 0-2 /hpf (0-2); Specific Grav Ur 1.026 (1.001-1.035); Squamous Epithelial Cell Urine Moderate /hpf (Few); pH Urine 6.5 (5.0-9.0)
== END 2025-02-11 17:21 | disposition home or self-care (01) ==
PROVIDERS: Emergency Provider Emergency Medicine
DX: R10.11 Right upper quadrant pain (principal)
CPT/HCPCS: 36415; 76705; 80053; 81001; 81025; 83690; 85025; 96361; 96374; 99284; J2405; J7120